=== PATIENT | female | born 1940 | race Caucasian/White ===

== ENCOUNTER 2017-12-11 11:03 | Emergency (ER) | payer MEDICARE, BC, SELFPAY ==
[2017-12-11] VITALS (35 sets, daily range): BP systolic 112–226; BP diastolic 50–138; PULSE 53–77; RESP 14–20; TEMP 36.4–38.6; O2SAT 96–99
--- NOTE | 2017-12-11 11:35 | ED.NEUROSD ---
HPI - Neuro Symptoms/Deficit General Chief Complaint: Neuro Symptoms/Deficit Stated Complaint: grandson thinks shes had a stroke Time Seen by Provider: 12/11/17 11:20 Source: patient and family Mode of arrival: wheelchair Limitations: no limitations History of Present Illness HPI Narrative: This is a 77-year-old female comes in with complaint of stroke-like symptoms. Patient states last night around 6 or 7 o'clock she noticed that her left side was not working very well. Um do Um her noticed symptoms probably around midnight. Her family came over this morning and definitely appreciated slurred speech as well as weakness on the left side and some right-sided facial droop. They brought her here to the emergency department. Patient has not had any prior strokes. She states her symptoms are really improved. She does feel she is having difficulty with her speech. She states she has a mild headache. She feels like she has double vision. It only occurs if both eyes are open, if 1 eye is closed she does not have it. She has had some nausea and vomiting this morning. She is not having any chest pain. No shortness of breath. Patient does not take any blood thinners currently. She takes aspirin only occasionally for headaches. She denies any cardiac or pulmonary history. She denies any GI history. She does have a stent in her bladder or ureter. She has also had with bilateral orthopedic surgery. She has had problems with mobility and her lower extremities but states the weakness on her left arm and leg is new. She describes it as feeling like a block that she can't really control it. Related Data Home Medications Medication Instructions Recorded Confirmed latanoprost [Xalatan] 1 [facility] HS #0 03/22/11 12/11/17 Allergies Allergy/AdvReac Type Severity Reaction Status Date / Time RAMIREZ Inhibitors Allergy Unknown Unverified 07/02/17 12:55 [RAMIREZ INHIBITORS] oxycodone [OXYCODONE] Allergy Unknown Unverified 07/02/17 12:55 MINOXODIL Allergy Unknown Uncoded 07/02/17 12:55 Review of Systems Review of Systems All systems reviewed & are unremarkable except as noted in HPI and below Constitutional Reports headache(s) (Mild) and Reports weakness Eyes Reports diplopia ENT Ears, Nose, Mouth, and Throat: Reports headache(s) (Mild) Cardiovascular Denies dyspnea and Denies dyspnea on exertion Respiratory Denies cough, Denies dyspnea, Denies dyspnea on exertion and Denies wheezing Gastrointestinal Gastrointestinal: Denies abdominal pain, Denies change in bowel habits, Denies diarrhea, Reports nausea and Reports vomiting Genitourinary Reports hematuria (Has stents.) Neurologic Reports as per HPI, Reports abnormal movements, Reports abnormal speech, Denies confusion, Reports headache(s) (Mild), Reports focal weakness, Reports sensory deficit (Chief left arm feels funny.), Reports paresthesias and Reports weakness Psychiatric Denies confusion Allergic/Immunologic Denies wheezing Exam Initial Vital Signs Initial Vital Signs: Vital Signs Temperature 97.5 F L 12/11/17 11:05 Pulse Rate 60 12/11/17 11:05 Respiratory Rate 18 12/11/17 11:05 Blood Pressure 209/111 H 12/11/17 11:05 Pulse Oximetry 96 12/11/17 11:05 Const General: cooperative and well developed Nutritional Appearance: obese Orientation: alert, awake, oriented x3 and not confused HENPA Head: normal to inspection, normocephalic and atraumatic Ears: external ears normal and TM's normal bilaterally Nose: external nose normal and No nasal discharge Face and sinus: sinuses nontender, no sinus tenderness and No dry mucous membranes Mouth: oral mucosae normal and moist mucous membranes Teeth and gingiva: dentition normal Throat: tonsils normal and uvula midline Resp Effort & Inspection: normal respiratory effort, able to speak in complete sentences, no respiratory distress and no use of accessory muscles Auscultation: clear to auscultation bilaterally, no rales, no rhonchi and no wheezes Cardio Rate: regular rate Rhythm: regular rhythm Heart Sounds: no click, no gallops, no murmurs and no rubs Pulses: normal peripheral pulses GI Inspection: non-distended Palpation: soft, no hepatosplenomegaly, No guarding, No pulsatile mass and No tender Auscultation: normal bowel sounds Skin General: no rashes or lesions noted Neuro General: alert, oriented x3, gait normal and no focal motor deficits Speech: speech normal Other: Pupils are equal round reactive to light, extraocular movements are intact, nares are clear, patient has right-sided facial droop. Patient has a left-sided weakness, she is able to lift her arm against gravity but is not able to maintain it. Patient is not able to lift her left lower extremity off the leg but she does attempt. She has 5/5 muscle strength in her right and upper and lower extremity. NEURO:CN 2-12 intact, sensation normal, finger nose finger test normal on the right. Patient is unable to perform heel-gr with her lower extremity on the left and with great difficulty perform with her [id number] on the left. Gait was not tested. Scores NIH Stroke Scale Level of Conciousness: Alert, keenly responsive Ask month/age: Answers both questions correctly. Open/close eyes, close hand: Performs both tasks correctly Best gaze horizontal: Normal Visual nunez: Partial hemianopia Facial palsy: Partial paralysis, total or near total paralysis of lower face Left arm drift: Drifts down, not to bed Right arm drift: No drift for full 10 sec Left leg drift: Some effort against gravity, cannot maintain, drifts down to bed Right leg drift: No drift for full 10 sec Limb ataxia: Present in two limbs Sensory on face/arms/legs: Normal, no sensory loss Best language: No aphasia, normal Dysarthria: Normal Extinction or inattention: No abnormality Total NIH Stroke scale score: 8 Course Orders Ordered: ED Orders 12/11/17 11:20 Urine Drug Screen, Rapid Stat 12/11/17 11:34 EKG-12 Lead Stat 12/11/17 11:48 Basic Metabolic Panel Stat Complete Blood Count AUTO DIFF Stat Partial Thromboplastin Time Stat Prothrombin Time INR Stat Troponin I Stat 12/11/17 12:00 CT head/brain wo con Stat 12/11/17 17:31 CT head/brain wo con Stat Discontinued Medications Acetaminophen (Tylenol) 975 mg PO NOW ONE Stop: 12/11/17 14:57 Last Admin: 12/11/17 15:33 Dose: 975 mg Hydralazine HCl (Apresoline) 5 mg IV NOW ONE Stop: 12/11/17 16:17 Last Admin: 12/11/17 16:25 Dose: 5 mg Sodium Chloride (Normal Saline 0.9%) 1,000 mls @ 150 mls/hr IV CONT DEVYN Last Infusion: 12/11/17 19:14 Dose: 0 mls/hr Admin: 12/11/17 12:07 Dose: 150 mls/hr Labetalol HCl (Normodyne) 10 mg IV NOW ONE Stop: 12/11/17 12:09 Last Admin: 12/11/17 12:32 Dose: 10 mg Labetalol HCl (Normodyne) 10 mg IV NOW ONE Stop: 12/11/17 14:09 Last Admin: 12/11/17 14:09 Dose: 10 mg Ondansetron HCl (Zofran) 4 mg IV NOW ONE Stop: 12/11/17 12:09 Last Admin: 12/11/17 12:22 Dose: 4 mg Reevaluation(s) Reevaluation #1: Patient continues to maintain mental status. Reevaluation #2: Patient continues to be able to maintain her airway and is not obtunded or had decrease in mental status. She has been shivering and there was concern for vtach but appears to be artifact from shivering after repeat EKG. Tylenol, ice packs for fever was started. Reevaluation #3: Time: 17:20 Consultations Consultation #1: Spoke with neurosurgery and they ask for NICU and admission to cryogenic transport driver. Also spoke with neurology prior to this with Dr. Jett and they asked us to speak with neurosurgery based on hemorrhagic stroke. Consultation #2: Dr. Krishna cryogenic transport driver at [facility] accepts patient for transfer. Consultation #3: Spoke with Dr. Krishna the cryogenic transport driver [place]. Updated him that patient has a fever, she has been shivering. We discussed blood pressure control and parameters. He continues recommend maintaining systolic less than 160. Labetalol if her heart rate is too slow hydralazine is fine. Discussed that we did Tylenol and ice packs for temperature control. Urine found any other obvious source of infection. He had and I did discuss possibly doing a repeat head CT from 6 hr from her initial as patient's transfer is delayed she will be leaving for another 2 hr. And her arrival be about 9:00 p.m. this evening. We did discuss that if there is sudden decompensation or rapid changes on her head CT would likely want air lift rather than a LS. Time: 17:20 Vital Signs - 8 hr 12/11/17 12:06 12/11/17 12:27 12/11/17 12:33 Temperature Pulse Rate 65 62 59 L Respiratory Rate 18 14 Blood Pressure Blood Pressure [Right Arm] 226/122 H 226/121 H 207/86 H Pulse Oximetry 96 96 12/11/17 12:37 12/11/17 12:45 12/11/17 12:50 Temperature Pulse Rate 53 L 58 L 55 L Respiratory Rate Blood Pressure Blood Pressure [Right Arm] 172/75 H 208/72 H 160/71 H Pulse Oximetry 12/11/17 12:55 12/11/17 13:04 12/11/17 13:21 Temperature Pulse Rate 55 L 56 L 68 Respiratory Rate 20 Blood Pressure Blood Pressure [Right Arm] 156/71 H 165/74 H 202/101 H Pulse Oximetry 98 12/11/17 13:30 12/11/17 13:45 12/11/17 14:03 Temperature Pulse Rate 66 69 71 Respiratory Rate 20 20 Blood Pressure Blood Pressure [Right Arm] 189/98 H 189/98 H 169/96 H Pulse Oximetry 99 98 12/11/17 14:09 12/11/17 14:14 12/11/17 14:17 Temperature Pulse Rate 67 66 68 Respiratory Rate Blood Pressure Blood Pressure [Right Arm] 163/89 H 174/114 H 136/82 Pulse Oximetry 12/11/17 14:39 12/11/17 14:52 12/11/17 15:05 Temperature Pulse Rate 61 66 65 Respiratory Rate 20 20 Blood Pressure Blood Pressure [Right Arm] 184/138 H 158/129 H 164/68 H Pulse Oximetry 98 98 12/11/17 15:15 12/11/17 15:37 12/11/17 16:02 Temperature Pulse Rate 67 74 70 Respiratory Rate Blood Pressure Blood Pressure [Right Arm] 163/71 H 151/89 H 174/70 H Pulse Oximetry 12/11/17 16:10 12/11/17 16:15 12/11/17 16:25 Temperature 101.5 F H Pulse Rate 72 72 70 Respiratory Rate 20 20 Blood Pressure Blood Pressure [Right Arm] 179/71 H 176/70 H 161/66 H Pulse Oximetry 97 99 12/11/17 16:30 12/11/17 16:35 12/11/17 16:50 Temperature 101.5 F H Pulse Rate 76 77 Respiratory Rate 20 20 Blood Pressure Blood Pressure [Right Arm] 160/66 H 175/94 H Pulse Oximetry 99 98 12/11/17 16:52 12/11/17 17:16 12/11/17 17:30 Temperature Pulse Rate 76 71 69 Respiratory Rate 18 20 Blood Pressure 178/79 H Blood Pressure [Right Arm] 156/62 H 146/61 H Pulse Oximetry 97 98 12/11/17 17:51 12/11/17 18:20 12/11/17 18:45 Temperature 99.7 F H 99.7 F H Pulse Rate 67 72 68 Respiratory Rate 20 20 20 Blood Pressure Blood Pressure [Right Arm] 136/62 143/57 H 120/50 L Pulse Oximetry 98 96 97 12/11/17 19:00 Temperature Pulse Rate 67 Respiratory Rate 20 Blood Pressure Blood Pressure [Right Arm] 112/57 L Pulse Oximetry 96 This is a 77-year-old female who came in with stroke-like symptoms. Head CT shows hemorrhagic stroke. [place] was contacted spoke with Neurology, Neurosurgery and cryogenic transport driver and plan for transfer to the neuro ICU. Patient blood pressure was quite elevated on arrival. She received labetalol she has received 2 doses and then a dose of hydralazine as her heart rate was in the 50s and 60s. Patient did developed a fever, Tylenol and ice packs were started. We consultation with the cryogenic transport driver and repeat head CT was planned. The patient continues to have elevated pressures we can do not cardiac pain if we have available. Patient is rapidly decompensated your have major changes on her CT plan to air lift after re-consultation the cryogenic transport driver patient's most recent blood pressure is 140/83. Patient's repeat head CT does not show any increase in size of her intraparenchymal hemorrhage. no major changes to the surrounding structures although edema still present. MDM - Neuro Symptoms/Deficit Lab Data Attestation: I reviewed the patient's lab results. Result diagrams: 12/11/17 11:48 12/11/17 11:48 Lab Results 12/11/17 12/11/17 12/11/17 Range/Units 11:20 11:48 11:48 WBC 7.8 (4.5-11.0) X10^3/uL RBC 3.77 L (4.0-5.2) X10^6/uL Hgb 11.3 L (12.0-16.0) g/dL Hct 33.8 L (36-46) % MCV 89.7 (80-100) fL MCH 30.1 (26-34) PG MCHC 33.6 (30-36) % RDW 13.2 (11.6-14.8) % Plt Count 174 (150-400) X10^3/uL Neut % (Auto) 76.9 H (50-75) % Lymph % (Auto) 17.4 L (25-40) % Jewell % (Auto) 4.0 (3-14) % Eos % (Auto) 1.0 L (2-4) % Baso % (Auto) 0.7 (0-2) % Neut # (Auto) 6000 H (1863-0809) /uL PT 11.3 (10.1-12.7) SECONDS INR 1.1 (0.9-1.3) APTT 27 (26.4-36.2) SECONDS Sodium (137-145) mmol/L Potassium (3.4-5.1) mmol/L Chloride (98-107) mmol/L Carbon Dioxide (22-32) mmol/L BUN (7-17) mg/dL Creatinine (0.52-1.04) mg/dL Estimated GFR (>60) mL/min BUN/Creatinine Ratio (6-22) Glucose (80-110) mg/dL Calcium (8.4-10.2) mg/dL Troponin I (0.01-0.034) ng/mL Urine Opiates Screen Negative (Negative) Ur Oxycodone Screen Negative (Negative) Urine Methadone Screen Negative (Negative) Ur Barbiturates Screen Negative (Negative) U Tricyclic Antidepress Negative (Negative) Ur Phencyclidine Scrn Negative (Negative) Ur Amphetamines Screen Negative (Negative) U Methamphetamines Scrn Negative (Negative) Ur MDMA Scrn (Ecstasy) Negative (Negative) U Benzodiazepines Scrn Negative (Negative) Urine Cocaine Screen Negative (Negative) U Marijuana (THC) Screen Negative (Negative) 12/11/17 Range/Units 11:48 WBC (4.5-11.0) X10^3/uL RBC (4.0-5.2) X10^6/uL Hgb (12.0-16.0) g/dL Hct (36-46) % MCV (80-100) fL MCH (26-34) PG MCHC (30-36) % RDW (11.6-14.8) % Plt Count (150-400) X10^3/uL Neut % (Auto) (50-75) % Lymph % (Auto) (25-40) % Jewell % (Auto) (3-14) % Eos % (Auto) (2-4) % Baso % (Auto) (0-2) % Neut # (Auto) (7798-2621) /uL PT (10.1-12.7) SECONDS INR (0.9-1.3) APTT (26.4-36.2) SECONDS Sodium 143 (137-145) mmol/L Potassium 4.1 (3.4-5.1) mmol/L Chloride 107 (98-107) mmol/L Carbon Dioxide 22 (22-32) mmol/L BUN 28 H (7-17) mg/dL Creatinine 2.50 H (0.52-1.04) mg/dL Estimated GFR 18.7 L (>60) mL/min BUN/Creatinine Ratio 11.2 (6-22) Glucose 135 H (80-110) mg/dL Calcium 9.0 (8.4-10.2) mg/dL Troponin I 0.035 H (0.01-0.034) ng/mL Urine Opiates Screen (Negative) Ur Oxycodone Screen (Negative) Urine Methadone Screen (Negative) Ur Barbiturates Screen (Negative) U Tricyclic Antidepress (Negative) Ur Phencyclidine Scrn (Negative) Ur Amphetamines Screen (Negative) U Methamphetamines Scrn (Negative) Ur MDMA Scrn (Ecstasy) (Negative) U Benzodiazepines Scrn (Negative) Urine Cocaine Screen (Negative) U Marijuana (THC) Screen (Negative) Point of Care Testing Glucose POC [address] scan - head: Radiologist's impression: CT Scan Report Signed Patient: Minnie Wetzel MR#: [id number] : 1940 Acct:[id number] Age/Sex: 77 / F Date of Service: 12/11/17 Loc: ED Accession Number: [id number] Procedure: CT head/brain wo con Ordering Provider: Cinthia Lynne D.O. PROCEDURE: CT HEAD/BRAIN WO CON INDICATIONS: left sided weakness, right facial droop, slurred speech TECHNIQUE: Noncontrast 4.5 mm thick angled axial sections acquired from the foramen magnum to the vertex, with coronal and sagittal reformats. For radiation dose reduction, the following was used: automated exposure control, adjustment of mA and/or kV according to patient size. COMPARISON: None. FINDINGS: Image quality: Excellent. CSF spaces: There is slight effacement of the right basilar cisterns secondary to mass effect from the right thalamus. No extra-axial fluid collections. There is mild cerebral volume loss with prominence of the ventricles and sulci. Brain: There is an intraparenchymal hematoma within the right thalamus measuring up to approximately 1.9 x 1.4 cm in transverse dimension adjacent vasogenic edema. There is mild associated mass effect on the adjacent basilar cisterns and midbrain as well as the third ventricle. There are subcortical, periventricular and deep white matter hypodensities consistent with mild chronic small vessel ischemic changes. The monzon-white matter interface appears preserved. There is intracranial internal carotid artery atherosclerosis. Skull and face: Calvarium and visualized facial bones appear intact, without suspicious lesions. Sinuses: Visualized sinuses and mastoids are clear. IMPRESSION: 1. Intraparenchymal hematoma within the right thalamus with associated mild vasogenic edema. 2. There is associated mass effect with slight effacement of the right basilar cisterns and third ventricle as well as mass effect on the mid brain. 3. Mild chronic white matter small vessel ischemic changes. Findings discussed with Dr. Lynne on 12/11/17 at 11 AM. Dictated by: Quinten Jensen M.D. on 12/11/2017 at 10:57 Approved by: Quinten Jensen M.D. on 12/11/2017 at 11:[address]: Radiologist's impression: CT Scan Report Signed Patient: Minnie Wetzel MR#: [id number] : 1940 Acct:[id number] Age/Sex: 77 / F Date of Service: 12/11/17 Loc: ED Accession Number: [id number] Procedure: CT head/brain wo con Ordering Provider: Cinthia Lynne D.O. PROCEDURE: CT HEAD/BRAIN WO CON INDICATIONS: repeat head ct for bleed for comparison, requested by neuro TECHNIQUE: Noncontrast 4.5 mm thick angled axial sections acquired from the foramen magnum to the vertex, with coronal and sagittal reformats. For radiation dose reduction, the following was used: automated exposure control, adjustment of mA and/or kV according to patient size. COMPARISON: [facility], CT, CT HEAD/BRAIN WO CON, 12/11/2017, 11:44. FINDINGS: Image quality: Excellent. CSF spaces: Basal cisterns are patent, yet mildly narrowed. No extra-axial fluid collections. The ventricles are symmetric in size and shape. Brain: There is again seen acute hemorrhage within the right thalamus, with expansion of the right thalamus and associated surrounding edema. The hemorrhage has not expanded since the prior study performed earlier in the day at 1144 hrs. No new areas of hemorrhage are detected. There is cerebral volume loss for age, with resultant ventricular and sulcal prominence. There are periventricular and deep white matter chronic small vessel ischemic changes. There is intracranial internal carotid artery atherosclerosis. Skull and face: Calvarium and visualized facial bones appear intact, without suspicious lesions. Sinuses: Visualized sinuses and mastoids are clear. IMPRESSION: Stable right thalamus hemorrhage with surrounding edema. Dictated by: Art Lee M.D. on 12/11/2017 at 18:20 Approved by: Art Lee M.D. on 12/11/2017 at 18:22 ECG Data Attestation: I personally reviewed and interpreted this ECG as follows: Interpretation: EKG 1. Shows a sinus rhythm with sinus arrhythmia with a rate of 64, P are 186, QRS of 165 and QTC of 494. Patient appears have a left bundle branch block as well as a left anterior fascicular block. Nonspecific ST change. EKG number also shows atrial fibrillation with a rate of 74, right bundle branch block and left anterior fascicular block. Patient does not appear to have any new ST changes from prior. She has a rate of 74, QRS 162 and QTC of 483. MDM Narrative Medical decision making narrative: Patient is not a tPA candidate secondary hemorrhagic stroke on CT findings as well as being outside an appropriate time frame. Patient's pressure was quite elevated she was given labetalol here which did improve her pressure. [facility] was contacted and plan for transfer it. There was significant delay and transportation and they were re-contacted the patient had repeat head CT as well as multiple doses of medication for pressure control. She also developed a fever here in the emergency department although no some neck that source is found other than potentially from her seizure. No clear infectious signs were found. Patient's repeat CT did not show any acute changes from the prior. Patient was ultimately transported and appeared to be stable when she left the emergency department Critical Care Time Critical Care Time: Yes (90) Total Critical Care Time: 90 Attestation: The high probability of a clinically significant, sudden or life threatening deterioration of the [respiratory and neurologic] system(s) required my full and direct attention, intervention and personal management. The aggregate critical care time was [90] minutes. This time is in addition to time spent performing reported procedures but includes the following: [] Data Review and interpretation [] Patient assessment and monitoring of vital signs [] Documentation [] Medication orders and management Discharge Plan Departure Patient Disposition: [facility] Clinical Impression: Acute CVA (cerebrovascular accident) Discharge Date/Time: 12/11/17 19:19 Interventions: ED Discharge Assessment Last Done: 12/11/17 18:26 Prescriptions: No Action latanoprost [Xalatan] 0.005 % drops 1 drp OPHTH HS Qty: 0 RF: 0
--- NOTE | 2017-12-11 11:40 | ED_ITS ---
HPI - Neuro Symptoms/Deficit General Chief Complaint: Neuro Symptoms/Deficit Stated Complaint: grandson thinks shes had a stroke Time Seen by Provider: 12/11/17 11:20 Source: patient and family Mode of arrival: wheelchair Limitations: no limitations History of Present Illness HPI Narrative: This is a 77-year-old female comes in with complaint of stroke- like symptoms. Patient states last night around 6 or 7 o'clock she noticed that her left side was not working very well. Um do Um her noticed symptoms probably around midnight. Her family came over this morning and definitely appreciated slurred speech as well as weakness on the left side and some right-sided facial droop. They brought her here to the emergency department. Patient has not had any prior strokes. She states her symptoms are really improved. She does feel she is having difficulty with her speech. She states she has a mild headache. She feels like she has double vision. It only occurs if both eyes are open, if 1 eye is closed she does not have it. She has had some nausea and vomiting this morning. She is not having any chest pain. No shortness of breath. Patient does not take any blood thinners currently. She takes aspirin only occasionally for headaches. She denies any cardiac or pulmonary history. She denies any GI history. She does have a stent in her bladder or ureter. She has also had with bilateral orthopedic surgery. She has had problems with mobility and her lower extremities but states the weakness on her left arm and leg is new. She describes it as feeling like a block that she can't really control it. Related Data Home Medications Medication Instructions Recorded Confirmed latanoprost [Xalatan] 1 [facility] HS #0 03/22/11 12/11/17 Allergies Allergy/AdvReac Type Severity Reaction Status Date / Time RAMIREZ Inhibitors Allergy Unknown Unverified 07/02/17 12:55 [RAMIREZ INHIBITORS] oxycodone [OXYCODONE] Allergy Unknown Unverified 07/02/17 12:55 MINOXODIL Allergy Unknown Uncoded 07/02/17 12:55 Review of Systems Review of Systems All systems reviewed & are unremarkable except as noted in HPI and below Constitutional Reports headache(s) (Mild) and Reports weakness Eyes Reports diplopia ENT Ears, Nose, Mouth, and Throat: Reports headache(s) (Mild) Cardiovascular Denies dyspnea and Denies dyspnea on exertion Respiratory Denies cough, Denies dyspnea, Denies dyspnea on exertion and Denies wheezing Gastrointestinal Gastrointestinal: Denies abdominal pain, Denies change in bowel habits, Denies diarrhea, Reports nausea and Reports vomiting Genitourinary Reports hematuria (Has stents.) Neurologic Reports as per HPI, Reports abnormal movements, Reports abnormal speech, Denies confusion, Reports headache(s) (Mild), Reports focal weakness, Reports sensory deficit (Chief left arm feels funny.), Reports paresthesias and Reports weakness Psychiatric Denies confusion Allergic/Immunologic Denies wheezing Exam Initial Vital Signs Initial Vital Signs: Vital Signs Temperature 97.5 F L 12/11/17 11:05 Pulse Rate 60 12/11/17 11:05 Respiratory Rate 18 12/11/17 11:05 Blood Pressure 209/111 H 12/11/17 11:05 Pulse Oximetry 96 12/11/17 11:05 Const General: cooperative and well developed Nutritional Appearance: obese Orientation: alert, awake, oriented x3 and not confused HENMA Head: normal to inspection, normocephalic and atraumatic Ears: external ears normal and TM's normal bilaterally Nose: external nose normal and No nasal discharge Face and sinus: sinuses nontender, no sinus tenderness and No dry mucous membranes Mouth: oral mucosae normal and moist mucous membranes Teeth and gingiva: dentition normal Throat: tonsils normal and uvula midline Resp Effort & Inspection: normal respiratory effort, able to speak in complete sentences, no respiratory distress and no use of accessory muscles Auscultation: clear to auscultation bilaterally, no rales, no rhonchi and no wheezes Cardio Rate: regular rate Rhythm: regular rhythm Heart Sounds: no click, no gallops, no murmurs and no rubs Pulses: normal peripheral pulses GI Inspection: non-distended Palpation: soft, no hepatosplenomegaly, No guarding, No pulsatile mass and No tender Auscultation: normal bowel sounds Skin General: no rashes or lesions noted Neuro General: alert, oriented x3, gait normal and no focal motor deficits Speech: speech normal Other: Pupils are equal round reactive to light, extraocular movements are intact, nares are clear, patient has right-sided facial droop. Patient has a left-sided weakness, she is able to lift her arm against gravity but is not able to maintain it. Patient is not able to lift her left lower extremity off the leg but she does attempt. She has 5/5 muscle strength in her right and upper and lower extremity. NEURO:CN 2-12 intact, sensation normal, finger nose finger test normal on the right. Patient is unable to perform heel-gr with her lower extremity on the left and with great difficulty perform with her [id number] on the left. Gait was not tested. Scores NIH Stroke Scale Level of Conciousness: Alert, keenly responsive Ask month/age: Answers both questions correctly. Open/close eyes, close hand: Performs both tasks correctly Best gaze horizontal: Normal Visual nunez: Partial hemianopia Facial palsy: Partial paralysis, total or near total paralysis of lower face Left arm drift: Drifts down, not to bed Right arm drift: No drift for full 10 sec Left leg drift: Some effort against gravity, cannot maintain, drifts down to bed Right leg drift: No drift for full 10 sec Limb ataxia: Present in two limbs Sensory on face/arms/legs: Normal, no sensory loss Best language: No aphasia, normal Dysarthria: Normal Extinction or inattention: No abnormality Total NIH Stroke scale score: 8 Course Orders Ordered: ED Orders 12/11/17 11:20 Urine Drug Screen, Rapid Stat 12/11/17 11:34 EKG-12 Lead Stat 12/11/17 11:48 Basic Metabolic Panel Stat Complete Blood Count AUTO DIFF Stat Partial Thromboplastin Time Stat Prothrombin Time INR Stat Troponin I Stat 12/11/17 12:00 CT head/brain wo con Stat 12/11/17 17:31 CT head/brain wo con Stat Discontinued Medications Acetaminophen (Tylenol) 975 mg PO NOW ONE Stop: 12/11/17 14:57 Last Admin: 12/11/17 15:33 Dose: 975 mg Hydralazine HCl (Apresoline) 5 mg IV NOW ONE Stop: 12/11/17 16:17 Last Admin: 12/11/17 16:25 Dose: 5 mg Sodium Chloride (Normal Saline 0.9%) 1,000 mls @ 150 mls/hr IV CONT DEVYN Last Infusion: 12/11/17 19:14 Dose: 0 mls/hr Admin: 12/11/17 12:07 Dose: 150 mls/hr Labetalol HCl (Normodyne) 10 mg IV NOW ONE Stop: 12/11/17 12:09 Last Admin: 12/11/17 12:32 Dose: 10 mg Labetalol HCl (Normodyne) 10 mg IV NOW ONE Stop: 12/11/17 14:09 Last Admin: 12/11/17 14:09 Dose: 10 mg Ondansetron HCl (Zofran) 4 mg IV NOW ONE Stop: 12/11/17 12:09 Last Admin: 12/11/17 12:22 Dose: 4 mg Reevaluation(s) Reevaluation #1: Patient continues to maintain mental status. Reevaluation #2: Patient continues to be able to maintain her airway and is not obtunded or had decrease in mental status. She has been shivering and there was concern for vtach but appears to be artifact from shivering after repeat EKG. Tylenol, ice packs for fever was started. Reevaluation #3: Time: 17:20 Consultations Consultation #1: Spoke with neurosurgery and they ask for NICU and admission to [facility]. Also spoke with neurology prior to this with Dr. Jett and they asked us to speak with neurosurgery based on hemorrhagic stroke. Consultation #2: Dr. Krishna comedian at [facility] accepts patient for transfer. Consultation #3: Spoke with Dr. Krishna the comedian [place]. Updated him that patient has a fever, she has been shivering. We discussed blood pressure control and parameters. He continues recommend maintaining systolic less than 160. Labetalol if her heart rate is too slow hydralazine is fine. Discussed that we did Tylenol and ice packs for temperature control. Urine found any other obvious source of infection. He had and I did discuss possibly doing a repeat head CT from 6 hr from her initial as patient's transfer is delayed she will be leaving for another 2 hr. And her arrival be about 9:00 p.m. this evening. We did discuss that if there is sudden decompensation or rapid changes on her head CT would likely want air lift rather than a LS. Time: 17:20 Vital Signs - 8 hr 12/11/17 12:06 12/11/17 12:27 12/11/17 12:33 Temperature Pulse Rate 65 62 59 L Respiratory Rate 18 14 Blood Pressure Blood Pressure [Right Arm] 226/122 H 226/121 H 207/86 H Pulse Oximetry 96 96 12/11/17 12:37 12/11/17 12:45 12/11/17 12:50 Temperature Pulse Rate 53 L 58 L 55 L Respiratory Rate Blood Pressure Blood Pressure [Right Arm] 172/75 H 208/72 H 160/71 H Pulse Oximetry 12/11/17 12:55 12/11/17 13:04 12/11/17 13:21 Temperature Pulse Rate 55 L 56 L 68 Respiratory Rate 20 Blood Pressure Blood Pressure [Right Arm] 156/71 H 165/74 H 202/101 H Pulse Oximetry 98 12/11/17 13:30 12/11/17 13:45 12/11/17 14:03 Temperature Pulse Rate 66 69 71 Respiratory Rate 20 20 Blood Pressure Blood Pressure [Right Arm] 189/98 H 189/98 H 169/96 H Pulse Oximetry 99 98 12/11/17 14:09 12/11/17 14:14 12/11/17 14:17 Temperature Pulse Rate 67 66 68 Respiratory Rate Blood Pressure Blood Pressure [Right Arm] 163/89 H 174/114 H 136/82 Pulse Oximetry 12/11/17 14:39 12/11/17 14:52 12/11/17 15:05 Temperature Pulse Rate 61 66 65 Respiratory Rate 20 20 Blood Pressure Blood Pressure [Right Arm] 184/138 H 158/129 H 164/68 H Pulse Oximetry 98 98 12/11/17 15:15 12/11/17 15:37 12/11/17 16:02 Temperature Pulse Rate 67 74 70 Respiratory Rate Blood Pressure Blood Pressure [Right Arm] 163/71 H 151/89 H 174/70 H Pulse Oximetry 12/11/17 16:10 12/11/17 16:15 12/11/17 16:25 Temperature 101.5 F H Pulse Rate 72 72 70 Respiratory Rate 20 20 Blood Pressure Blood Pressure [Right Arm] 179/71 H 176/70 H 161/66 H Pulse Oximetry 97 99 12/11/17 16:30 12/11/17 16:35 12/11/17 16:50 Temperature 101.5 F H Pulse Rate 76 77 Respiratory Rate 20 20 Blood Pressure Blood Pressure [Right Arm] 160/66 H 175/94 H Pulse Oximetry 99 98 12/11/17 16:52 12/11/17 17:16 12/11/17 17:30 Temperature Pulse Rate 76 71 69 Respiratory Rate 18 20 Blood Pressure 178/79 H Blood Pressure [Right Arm] 156/62 H 146/61 H Pulse Oximetry 97 98 12/11/17 17:51 12/11/17 18:20 12/11/17 18:45 Temperature 99.7 F H 99.7 F H Pulse Rate 67 72 68 Respiratory Rate 20 20 20 Blood Pressure Blood Pressure [Right Arm] 136/62 143/57 H 120/50 L Pulse Oximetry 98 96 97 12/11/17 19:00 Temperature Pulse Rate 67 Respiratory Rate 20 Blood Pressure Blood Pressure [Right Arm] 112/57 L Pulse Oximetry 96 This is a 77-year-old female who came in with stroke-like symptoms. Head CT shows hemorrhagic stroke. [place] was contacted spoke with Neurology, Neurosurgery and comedian and plan for transfer to the neuro ICU. Patient blood pressure was quite elevated on arrival. She received labetalol she has received 2 doses and then a dose of hydralazine as her heart rate was in the 50s and 60s. Patient did developed a fever, Tylenol and ice packs were started. We consultation with the comedian and repeat head CT was planned. The patient continues to have elevated pressures we can do not cardiac pain if we have available. Patient is rapidly decompensated your have major changes on her CT plan to air lift after re-consultation the comedian patient's most recent blood pressure is 140/83. Patient's repeat head CT does not show any increase in size of her intraparenchymal hemorrhage. no major changes to the surrounding structures although edema still present. MDM - Neuro Symptoms/Deficit Lab Data Attestation: I reviewed the patient's lab results. Result diagrams: 12/11/17 11:48 12/11/17 11:48 Lab Results 12/11/17 12/11/17 12/11/17 Range/Units 11:20 11:48 11:48 WBC 7.8 (4.5-11.0) X10^3/uL RBC 3.77 L (4.0-5.2) X10^6/uL Hgb 11.3 L (12.0-16.0) g/dL Hct 33.8 L (36-46) % MCV 89.7 (80-100) fL MCH 30.1 (26-34) PG MCHC 33.6 (30-36) % RDW 13.2 (11.6-14.8) % Plt Count 174 (150-400) X10^3/uL Neut % (Auto) 76.9 H (50-75) % Lymph % (Auto) 17.4 L (25-40) % [place] % (Auto) 4.0 (3-14) % Eos % (Auto) 1.0 L (2-4) % Baso % (Auto) 0.7 (0-2) % Neut # (Auto) 6000 H (2036-5091) /uL PT 11.3 (10.1-12.7) SECONDS INR 1.1 (0.9-1.3) APTT 27 (26.4-36.2) SECONDS Sodium (137-145) mmol/L Potassium (3.4-5.1) mmol/L Chloride (98-107) mmol/L Carbon Dioxide (22-32) mmol/L BUN (7-17) mg/dL Creatinine (0.52-1.04) mg/dL Estimated GFR (>60) mL/min BUN/Creatinine Ratio (6-22) Glucose (80-110) mg/dL Calcium (8.4-10.2) mg/dL Troponin I (0.01-0.034) ng/mL Urine Opiates Screen Negative (Negative) Ur Oxycodone Screen Negative (Negative) Urine Methadone Screen Negative (Negative) Ur Barbiturates Screen Negative (Negative) U Tricyclic Antidepress Negative (Negative) Ur Phencyclidine Scrn Negative (Negative) Ur Amphetamines Screen Negative (Negative) U Methamphetamines Scrn Negative (Negative) Ur MDMA Scrn (Ecstasy) Negative (Negative) U Benzodiazepines Scrn Negative (Negative) Urine Cocaine Screen Negative (Negative) U Marijuana (THC) Screen Negative (Negative) 12/11/17 Range/Units 11:48 WBC (4.5-11.0) X10^3/uL RBC (4.0-5.2) X10^6/uL Hgb (12.0-16.0) g/dL Hct (36-46) % MCV (80-100) fL MCH (26-34) PG MCHC (30-36) % RDW (11.6-14.8) % Plt Count (150-400) X10^3/uL Neut % (Auto) (50-75) % Lymph % (Auto) (25-40) % [place] % (Auto) (3-14) % Eos % (Auto) (2-4) % Baso % (Auto) (0-2) % Neut # (Auto) (9955-0818) /uL PT (10.1-12.7) SECONDS INR (0.9-1.3) APTT (26.4-36.2) SECONDS Sodium 143 (137-145) mmol/L Potassium 4.1 (3.4-5.1) mmol/L Chloride 107 (98-107) mmol/L Carbon Dioxide 22 (22-32) mmol/L BUN 28 H (7-17) mg/dL Creatinine 2.50 H (0.52-1.04) mg/dL Estimated GFR 18.7 L (>60) mL/min BUN/Creatinine Ratio 11.2 (6-22) Glucose 135 H (80-110) mg/dL Calcium 9.0 (8.4-10.2) mg/dL Troponin I 0.035 H (0.01-0.034) ng/mL Urine Opiates Screen (Negative) Ur Oxycodone Screen (Negative) Urine Methadone Screen (Negative) Ur Barbiturates Screen (Negative) U Tricyclic Antidepress (Negative) Ur Phencyclidine Scrn (Negative) Ur Amphetamines Screen (Negative) U Methamphetamines Scrn (Negative) Ur MDMA Scrn (Ecstasy) (Negative) U Benzodiazepines Scrn (Negative) Urine Cocaine Screen (Negative) U Marijuana (THC) Screen (Negative) Point of Care Testing Glucose POC [address] scan - head: Radiologist's impression: CT Scan Report Signed Patient: Minnie Wetzel MR#: [id number] : 1940 Acct:[id number] Age/Sex: 77 / F Date of Service: 12/11/17 Loc: ED Accession Number: [id number] Procedure: CT head/brain wo con Ordering Provider: Cinthia Lynne D.O. PROCEDURE: CT HEAD/BRAIN WO CON INDICATIONS: left sided weakness, right facial droop, slurred speech TECHNIQUE: Noncontrast 4.5 mm thick angled axial sections acquired from the foramen magnum to the vertex, with coronal and sagittal reformats. For radiation dose reduction, the following was used: automated exposure control, adjustment of mA and/or kV according to patient size. COMPARISON: None. FINDINGS: Image quality: Excellent. CSF spaces: There is slight effacement of the right basilar cisterns secondary to mass effect from the right thalamus. No extra-axial fluid collections. There is mild cerebral volume loss with prominence of the ventricles and sulci. Brain: There is an intraparenchymal hematoma within the right thalamus measuring up to approximately 1.9 x 1.4 cm in transverse dimension adjacent vasogenic edema. There is mild associated mass effect on the adjacent basilar cisterns and midbrain as well as the third ventricle. There are subcortical, periventricular and deep white matter hypodensities consistent with mild chronic small vessel ischemic changes. The monzon-white matter interface appears preserved. There is intracranial internal carotid artery atherosclerosis. Skull and face: Calvarium and visualized facial bones appear intact, without suspicious lesions. Sinuses: Visualized sinuses and mastoids are clear. IMPRESSION: 1. Intraparenchymal hematoma within the right thalamus with associated mild vasogenic edema. 2. There is associated mass effect with slight effacement of the right basilar cisterns and third ventricle as well as mass effect on the mid brain. 3. Mild chronic white matter small vessel ischemic changes. Findings discussed with Dr. Lynne on 12/11/17 at 11 AM. Dictated by: Quinten Jensen M.D. on 12/11/2017 at 10:57 Approved by: Quinten Jensen M.D. on 12/11/2017 at 11:[address]: Radiologist's impression: CT Scan Report Signed Patient: Minnie Wetzel MR#: [id number] : 1940 Acct:[id number] Age/Sex: 77 / F Date of Service: 12/11/17 Loc: ED Accession Number: [id number] Procedure: CT head/brain wo con Ordering Provider: Cinthia Lynne D.O. PROCEDURE: CT HEAD/BRAIN WO CON INDICATIONS: repeat head ct for bleed for comparison, requested by neuro TECHNIQUE: Noncontrast 4.5 mm thick angled axial sections acquired from the foramen magnum to the vertex, with coronal and sagittal reformats. For radiation dose reduction, the following was used: automated exposure control, adjustment of mA and/or kV according to patient size. COMPARISON: [facility], CT, CT HEAD/BRAIN WO CON, 12/11/2017, 11:44. FINDINGS: Image quality: Excellent. CSF spaces: Basal cisterns are patent, yet mildly narrowed. No extra-axial fluid collections. The ventricles are symmetric in size and shape. Brain: There is again seen acute hemorrhage within the right thalamus, with expansion of the right thalamus and associated surrounding edema. The hemorrhage has not expanded since the prior study performed earlier in the day at 1144 hrs. No new areas of hemorrhage are detected. There is cerebral volume loss for age, with resultant ventricular and sulcal prominence. There are periventricular and deep white matter chronic small vessel ischemic changes. There is intracranial internal carotid artery atherosclerosis. Skull and face: Calvarium and visualized facial bones appear intact, without suspicious lesions. Sinuses: Visualized sinuses and mastoids are clear. IMPRESSION: Stable right thalamus hemorrhage with surrounding edema. Dictated by: Art Lee M.D. on 12/11/2017 at 18:20 Approved by: Art Lee M.D. on 12/11/2017 at 18:22 ECG Data Attestation: I personally reviewed and interpreted this ECG as follows: Interpretation: EKG 1. Shows a sinus rhythm with sinus arrhythmia with a rate of 64, P are 186, QRS of 165 and QTC of 494. Patient appears have a left bundle branch block as well as a left anterior fascicular block. Nonspecific ST change. EKG number also shows atrial fibrillation with a rate of 74, right bundle branch block and left anterior fascicular block. Patient does not appear to have any new ST changes from prior. She has a rate of 74, QRS 162 and QTC of 483. MDM Narrative Medical decision making narrative: Patient is not a tPA candidate secondary hemorrhagic stroke on CT findings as well as being outside an appropriate time frame. Patient's pressure was quite elevated she was given labetalol here which did improve her pressure. [facility] was contacted and plan for transfer it. There was significant delay and transportation and they were re- contacted the patient had repeat head CT as well as multiple doses of medication for pressure control. She also developed a fever here in the emergency department although no some neck that source is found other than potentially from her seizure. No clear infectious signs were found. Patient's repeat CT did not show any acute changes from the prior. Patient was ultimately transported and appeared to be stable when she left the emergency department Critical Care Time Critical Care Time: Yes (90) Total Critical Care Time: 90 Attestation: The high probability of a clinically significant, sudden or life threatening deterioration of the [respiratory and neurologic] system(s) required my full and direct attention, intervention and personal management. The aggregate critical care time was [90] minutes. This time is in addition to time spent performing reported procedures but includes the following: [] Data Review and interpretation [] Patient assessment and monitoring of vital signs [] Documentation [] Medication orders and management Discharge Plan Departure Patient Disposition: [facility] Clinical Impression: Acute CVA (cerebrovascular accident) Discharge Date/Time: 12/11/17 19:19 Interventions: ED Discharge Assessment Last Done: 12/11/17 18:26 Prescriptions: No Action latanoprost [Xalatan] 0.005 % drops 1 drp OPHTH HS Qty: 0 RF: 0
[2017-12-11 11:54] LABS: Urine Amphetamines Negative (Negative); Urine Barbiturates Negative (Negative); Urine Benzodiazepines Negative (Negative); Urine Cocaine Negative (Negative); Urine MDMA Negative (Negative); Urine Methadone Negative (Negative); Urine Methamphetamines Negative (Negative); Urine Morphine/Opi cutoff 2000 Negative (Negative); Urine Oxycodone Negative (Negative); Urine Phencyclidine Negative (Negative); Urine Tetrahydrocannabinol Negative (Negative); Urine Tricyclic Antidepressant Negative (Negative)
--- NOTE | 2017-12-11 12:00 | DI.CT.S_ITS ---
PROCEDURE: CT HEAD/BRAIN WO CON INDICATIONS: left sided weakness, right facial droop, slurred speech TECHNIQUE: Noncontrast 4.5 mm thick angled axial sections acquired from the foramen magnum to the vertex, with coronal and sagittal reformats. For radiation dose reduction, the following was used: automated exposure control, adjustment of mA and/or kV according to patient size. COMPARISON: None. FINDINGS: Image quality: Excellent. CSF spaces: There is slight effacement of the right basilar cisterns secondary to mass effect from the right thalamus. No extra-axial fluid collections. There is mild cerebral volume loss with prominence of the ventricles and sulci. Brain: There is an intraparenchymal hematoma within the right thalamus measuring up to approximately 1.9 x 1.4 cm in transverse dimension adjacent vasogenic edema. There is mild associated mass effect on the adjacent basilar cisterns and midbrain as well as the third ventricle. There are subcortical, periventricular and deep white matter hypodensities consistent with mild chronic small vessel ischemic changes. The monzon-white matter interface appears preserved. There is intracranial internal carotid artery atherosclerosis. Skull and face: Calvarium and visualized facial bones appear intact, without suspicious lesions. Sinuses: Visualized sinuses and mastoids are clear. IMPRESSION: 1. Intraparenchymal hematoma within the right thalamus with associated mild vasogenic edema. 2. There is associated mass effect with slight effacement of the right basilar cisterns and third ventricle as well as mass effect on the mid brain. 3. Mild chronic white matter small vessel ischemic changes. Findings discussed with Dr. Lynne on 12/11/17 at 11 AM. Dictated by: Quinten Jensen M.D. on 12/11/2017 at 10:57 Approved by: Quinten Jensen M.D. on 12/11/2017 at 11:03
[2017-12-11 12:02] LABS: Add Manual Diff / Slide Review NO; Basophils Percent Auto 0.7 % (0-2); Hematocrit 33.8 % (36-46); Hemoglobin 11.3 g/dL (12.0-16.0); Lymphocytes Percent Auto 17.4 % (25-40); Mean Corpuscular HGB Conc 33.6 % (30-36); Mean Corpuscular Hemoglobin 30.1 PG (26-34); Mean Corpuscular Volume 89.7 fL (80-100); Neutrophils Absolute Auto 6000 /uL (3000-5900); Neutrophils Percent Auto 76.9 % (50-75); Platelet Count 174 X10^3/uL (150-400); Red Blood Cell Count 3.77 X10^6/uL (4.0-5.2); Red Cell Distribution Width 13.2 % (11.6-14.8); White Blood Cell Count 7.8 X10^3/uL (4.5-11.0)
[2017-12-11] MEDS: SODIUM CHLORIDE 0.9% 1,000 ML 150 ML IV (12:07)
[2017-12-11 12:10] LABS: BUN Creatinine Ratio 11.2 (6-22); Blood Urea Nitrogen 28 mg/dL (7-17); Carbon Dioxide 22 mmol/L (22-32); Chloride 107 mmol/L (98-107); Estimated Glomerular Filt Rate 18.7 mL/min (>60); Glucose 135 mg/dL (80-110); HEMOLYSIS < 15 (0-50); Potassium 4.1 mmol/L (3.4-5.1); Sodium 143 mmol/L (137-145)
[2017-12-11 12:21] LABS: INR 1.1 (0.9-1.3); Prothrombin Time 11.3 SECONDS (10.1-12.7)
[2017-12-11 12:22] LABS: Troponin I 0.035 ng/mL (0.01-0.034)
[2017-12-11] MEDS: ONDANSETRON 4 MG/2 ML INJ IV (12:22)
[2017-12-11 12:24] LABS: PTT Partial Thromboplastin Tim 27 SECONDS (26.4-36.2)
[2017-12-11] MEDS: LABETALOL 100 MG/20ML MDV 10 MG IV ×2 (12:32→14:09)
--- NOTE | 2017-12-11 14:00 | PC.NURSE ---
PT STATES SHE CAN FEEL PRESSURE ON LEFT UPPER/LOWER BODY , HOWEVER REPORTS NO PAIN RESPONSE WHEN PINCHED. PROVIDER AWARE. NO NEW ORDERS AT THIS TIME.
--- NOTE | 2017-12-11 14:00 | PC.NURSE ---
assessed pts skin. bilateral groin redness/irritation to skin. Pt states she gets yeast infections in her groin. provider aware pts skin is irritated. no new orders at this time. Cleaned perineal area with wet wipes, applied to clean brief to pt.
[2017-12-11] MEDS: ACETAMINOPHEN 325 MG TABLET 975 MG PO (15:33)
[2017-12-11] MEDS: HYDRALAZINE 20 MG/ML VIAL 5 MG IV (16:25)
--- NOTE | 2017-12-11 16:35 | PC.NURSE ---
NOTICED RUN OF V-TACH ON PTS TELEMETRY. PROVIDER NOTIFIED. EKG ORDERED. EKG SHOWED NO SIGNS OF V-TACH. PROVIDER AWARE NO NEW ORDERS AT THIS TIME.
--- NOTE | 2017-12-11 17:31 | DI.CT.S_ITS ---
PROCEDURE: CT HEAD/BRAIN WO CON INDICATIONS: repeat head ct for bleed for comparison, requested by neuro TECHNIQUE: Noncontrast 4.5 mm thick angled axial sections acquired from the foramen magnum to the vertex, with coronal and sagittal reformats. For radiation dose reduction, the following was used: automated exposure control, adjustment of mA and/or kV according to patient size. COMPARISON: Located Within [facility], CT, CT HEAD/BRAIN WO CON, 12/11/2017, 11:44. FINDINGS: Image quality: Excellent. CSF spaces: Basal cisterns are patent, yet mildly narrowed. No extra-axial fluid collections. The ventricles are symmetric in size and shape. Brain: There is again seen acute hemorrhage within the right thalamus, with expansion of the right thalamus and associated surrounding edema. The hemorrhage has not expanded since the prior study performed earlier in the day at 1144 hrs. No new areas of hemorrhage are detected. There is cerebral volume loss for age, with resultant ventricular and sulcal prominence. There are periventricular and deep white matter chronic small vessel ischemic changes. There is intracranial internal carotid artery atherosclerosis. Skull and face: Calvarium and visualized facial bones appear intact, without suspicious lesions. Sinuses: Visualized sinuses and mastoids are clear. IMPRESSION: Stable right thalamus hemorrhage with surrounding edema. Dictated by: Art Lee M.D. on 12/11/2017 at 18:20 Approved by: Art Lee M.D. on 12/11/2017 at 18:22
--- NOTE | 2017-12-11 18:00 | PC.NURSE ---
PT TAKEN TO GET CT OF HEAD. BY POWER TOOL REPAIRER
== END 2017-12-11 19:19 | disposition short-term general hospital (02) ==
PROVIDERS: Emergency Provider Emergency Medicine; Family Provider Internal Medicine; PCP Internal Medicine
DX: I61.9 Nontraumatic intracerebral hemorrhage, unspecified (principal)
CPT/HCPCS: 70450; 80048; 80305; 82962; 84484; 85025; 85610; 85730; 93005; 96361; 96374; 96375; 96376; 99285; 99291; J0360; J2405

== ENCOUNTER 2018-01-07 14:33 | Emergency (ER) | payer MEDICARE, BC, SELFPAY ==
[2018-01-07 14:37] VITALS: BP 165/100; PULSE 84; RESP 14; TEMP 37.5; O2SAT 98
--- NOTE | 2018-01-07 14:46 | DI.RAD.S_ITS ---
PROCEDURE: XR CHEST 1V INDICATIONS: suspected sepsis, hypertension TECHNIQUE: One view of the chest was acquired. COMPARISON: [facility], CHEST 2 VIEW, 08/17/2013, 8:57. [facility], CHEST 2 VIEW, 10/10/2015, 14:42. FINDINGS: Surgical changes and devices: None. Lungs and pleura: Within the left lower lung, there is atelectasis versus mild infiltrate. On this semiupright portable chest examination, no large pneumothorax or large pleural effusions are seen. Mediastinum: The cardiac contours are within normal limits. The aorta demonstrates calcification and tortuosity. Bones and chest wall: Age-appropriate bony degenerative changes are seen. No suspicious bony lesions. Overlying soft tissues appear unremarkable. Residual contrast is seen within the splenic flexure. IMPRESSION: Atelectasis versus mild infiltrate seen involving left lower lung. Please consider a 2 view chest series versus CT for further evaluation. Dictated by: Art Lee M.D. on 01/07/2018 at 14:49 Approved by: Art Lee M.D. on 01/07/2018 at 14:51
[2018-01-07 15:17] LABS: Add Manual Diff / Slide Review NO; Basophils Percent Auto 0.4 % (0-2); Eosinophils Percent Auto 0.8 % (2-4); Hematocrit 30.6 % (36-46); Hemoglobin 10.1 g/dL (12.0-16.0); Mean Corpuscular Hemoglobin 29.8 PG (26-34); Mean Corpuscular Volume 90.2 fL (80-100); Monocytes Percent Auto 4.9 % (3-14); Neutrophils Absolute Auto 8300 /uL (3000-5900); Neutrophils Percent Auto 87.9 % (50-75); Platelet Count 214 X10^3/uL (150-400); Red Blood Cell Count 3.39 X10^6/uL (4.0-5.2); Red Cell Distribution Width 14.4 % (11.6-14.8); White Blood Cell Count 9.4 X10^3/uL (4.5-11.0)
[2018-01-07 15:24] LABS: INR 1.2 (0.9-1.3)
[2018-01-07 15:27] LABS: PTT Partial Thromboplastin Tim 27 SECONDS (26.4-36.2)
[2018-01-07 15:30] LABS: Creatine Kinase 28 U/L (30-135); Lactate (Lactic Acid) 0.7 mmol/L (0.7-2.1)
[2018-01-07 15:31] LABS: Alanine Aminotransferase 29 IU/L (9-52); Albumin 4.1 g/dL (3.5-5.0); Albumin Globulin Ratio 1.2 (1.0-2.8); Alkaline Phosphatase 101 U/L (38-126); Aspartate Aminotransferase 27 IU/L (14-36); BUN Creatinine Ratio 15.7 (6-22); Bilirubin Total 0.5 mg/dL (0.2-1.3); Blood Urea Nitrogen 36 mg/dL (7-17); Calcium 8.5 mg/dL (8.4-10.2); Carbon Dioxide 19 mmol/L (22-32); Chloride 108 mmol/L (98-107); Estimated Glomerular Filt Rate 20.6 mL/min (>60); Globulin 3.4 g/dL (1.7-4.1); Glucose 154 mg/dL (80-110); HEMOLYSIS < 15 (0-50); Lipase 108 U/L (23-300); Potassium 4.6 mmol/L (3.4-5.1); Sodium 145 mmol/L (137-145); Total Protein 7.5 g/dL (6.3-8.2)
[2018-01-07 15:42] LABS: Troponin I 0.023 ng/mL (0.01-0.034)
[2018-01-07 15:59] LABS: Procalcitonin 0.09 ng/mL (<0.5)
[2018-01-07 16:30] VITALS: BP 159/88; PULSE 69; RESP 28; O2SAT 92
--- NOTE | 2018-01-07 16:46 | ED_ITS ---
HPI - Nausea/Vomiting/Diarrhea General Chief complaint: Nausea/Vomiting/Diarrhea Stated complaint: Abd pain Time Seen by Provider: 01/07/18 15:57 Source: patient and EMS Mode of arrival: EMS Limitations: no limitations History of Present Illness HPI Narrative: Patient states she began to feel nauseated and developed vomiting after she was moved after breakfast this morning. Patient states she believes the movement made her feel sick. Patient is 4 days postop after having bilateral renal stents placed. She states that the reason for the stents is that she had ?kidney cancer? when she was 27 and that the radiation cause scarring, which has caused increasing issue since. Patient denies fevers ; she states that otherwise she has not felt ill other than just general tiredness since her procedure. Patient denies any dysuria; she states she was discharged on antibiotics after her procedure. Patient denies chest pain or shortness of breath. She denies new pain. She states that now she is feeling better after receiving Zofran from medics EN route. Medics also states that patient has improved quite a bit for them, as well. Related Data Home Medications Medication Instructions Recorded Confirmed latanoprost [Xalatan] 1 drp [facility] HS #0 03/22/11 01/07/18 Lactobacillus rhamnosus GG 2 cap PO DAILY 01/07/18 01/07/18 [Culturelle] acetaminophen 325 mg PO Q8H PRN 01/07/18 01/07/18 amlodipine 10 mg PO DAILY 01/07/18 01/07/18 aspirin 81 mg PO DAILY 01/07/18 01/07/18 baclofen 5 mg PO BID 01/07/18 01/07/18 bisacodyl 1 - 2 tab PO PRN PRN 01/07/18 01/07/18 bisacodyl [Dulcolax (bisacodyl)] 1 supp ME PRN PRN 01/07/18 01/07/18 calcium carbonate-vitamin D3 1 tab PO DAILY 01/07/18 01/07/18 [Calcium 600 + D(3)] ciprofloxacin HCl [Cipro] 15 mg/kg PO DAILY 01/07/18 01/07/18 clonidine 1 patch TOPICAL MO 01/07/18 01/07/18 famotidine 20 mg PO QPM 01/07/18 01/07/18 ferrous sulfate 325 mg PO DAILY 01/07/18 01/07/18 hydralazine 25 mg PO Q8H 01/07/18 01/07/18 insulin lispro 1 dose SUBCUT ACHS 01/07/18 01/07/18 magnesium hydroxide [Milk of 30 ml PO PRN PRN 01/07/18 01/07/18 Magnesia] metoprolol tartrate 25 mg PO BID 01/07/18 01/07/18 pantoprazole 40 mg PO DAILY 01/07/18 01/07/18 pravastatin 40 mg PO QPM 01/07/18 01/07/18 sodium phosphates [Fleet Enema] 1 supp ME PRN PRN 01/07/18 01/07/18 vitamin B complex 1 tab PO DAILY 01/07/18 01/07/18 Previous Rx's Medication Instructions Recorded ondansetron [Zofran ODT] 4 mg PO QID PRN #7 tab 01/07/18 Allergies Allergy/AdvReac Type Severity Reaction Status Date / Time RAMIREZ Inhibitors Allergy Unknown Unverified 07/02/17 12:55 [RAMIREZ INHIBITORS] oxycodone [OXYCODONE] Allergy Unknown Unverified 07/02/17 12:55 MINOXODIL Allergy Unknown Uncoded 07/02/17 12:55 Review of Systems Review of Systems All systems reviewed & are unremarkable except as noted in HPI and below Constitutional Denies chills, Denies fever(s), Denies lethargy and Denies weakness Eyes Denies change in vision, Denies eye discharge, Denies irritation and Denies loss of vision ENT Ears, Nose, Mouth, and Throat: Denies change in voice, Denies neck pain and Denies sore throat Cardiovascular Denies chest pain, Denies irregular heart rhythm, Denies lightheadedness, Denies palpitations, Denies dyspnea, Denies dyspnea on exertion and Denies orthopnea Respiratory Denies cough, Denies dyspnea, Denies dyspnea on exertion and Denies wheezing Gastrointestinal Gastrointestinal: Denies abdominal pain, Denies change in bowel habits, Denies diarrhea, Reports nausea and Reports vomiting Genitourinary Denies hematuria, Denies flank pain, Denies urinary incontinence and Denies urinary urgency Musculoskeletal Denies neck pain Integumentary/Breasts Denies pruritus, Denies erythema, Denies rash and Denies wounds Neurologic Denies confusion, Denies loss of vision and Denies weakness Psychiatric Denies anxiety, Denies confusion, Denies depression, Denies homicidal ideation and Denies suicidal ideation Endocrine Denies palpitations Hematologic/Lymphatic Denies easy bruising Allergic/Immunologic Denies wheezing PFSH Medical History Ureteral stenosis (Acute) CVA (cerebral vascular accident) (Acute) Renal cancer (Acute) Renal failure (Acute) Metabolic acidosis (Acute) Nephrostomy tube displaced (Acute) Surgical History History of renal stent (Acute) Social History additional social history: Patient is not a smoker; she lives in an assisted living facility. Exam Initial Vital Signs Initial Vital Signs: Vital Signs Temperature 99.5 F 01/07/18 14:37 Pulse Rate 84 01/07/18 14:37 Respiratory Rate 14 01/07/18 14:37 Blood Pressure 165/100 H 01/07/18 14:37 Pulse Oximetry 98 01/07/18 14:37 Const General: cooperative and well developed Nutritional Appearance: well nourished Orientation: alert, awake, oriented x3 and not confused HENMT Head: normocephalic and atraumatic Ears: external ears normal Nose: external nose normal and No nasal discharge Face and sinus: face symmetric and No dry mucous membranes Mouth: oral mucosae normal and moist mucous membranes Eyes General: appearance normal, both eyes and all related structures Eyelids: eyelids normal Conjunctivae: conjunctivae normal Sclera: sclerae normal Pupils: PERRL EOM: EOM intact bilaterally Neck Neck: normal visual inspection, trachea midline, No lymphadenopathy, No midline deformity and No JVD Lymphatic: No lymphedema Chest Chest: normal inspection of the chest Resp Effort & Inspection: normal respiratory effort, able to speak in complete sentences, no respiratory distress and no use of accessory muscles Auscultation: clear to auscultation bilaterally, no rales, no rhonchi and no wheezes Cardio Rate: regular rate Rhythm: regular rhythm Heart Sounds: no click, no gallops, no murmurs and no rubs Pulses: normal peripheral pulses GI Inspection: non-distended Palpation: soft, no hepatosplenomegaly, No guarding, No pulsatile mass and No tender Back/Spine/Pelvis Back: No CVA tenderness Cervical Spine: cervical ROM normal and No pain with cervical ROM Thoracic/Lumbar Spine: thoracic and lumbar spine normal to inspection Skin General: no rashes or lesions noted, No jaundice and No petechiae Neuro General: alert, oriented x3, gait normal and no focal motor deficits Speech: speech normal Extrem General: full ROM, no clubbing, cyanosis or edema, no pedal edema and no calf tenderness Psych Appearance: well kempt Mental Status: mental status grossly normal Attitude: cooperative Thought Content: normal and suicidality Judgment: judgment good Course Course Narrative: Patient was treated symptomatically in the emergency department, and was worked up with labs, which were unremarkable. Patient stated she was feeling much better. I did not feel further intervention was indicated, as patient was stable. We have discussed home management, as well as the usual indications for return. Orders Ordered: ED Orders 01/07/18 14:46 XR chest 1V Stat 01/07/18 14:51 EKG-12 Lead Stat 01/07/18 15:03 Complete Blood Count AUTO DIFF Stat Comprehensive Metabolic Panel Stat Lactate (Lactic Acid) Stat Lipase Stat Partial Thromboplastin Time Stat Procalcitonin Stat Prothrombin Time INR Stat Troponin & CK Cardiac Panel Stat 01/07/18 15:39 Blood Culture Stat 01/07/18 16:00 Urine Culture Stat Urine Microscopic Stat Vital Signs - 8 hr 01/07/18 14:37 01/07/18 16:30 01/07/18 18:00 Temperature 99.5 F Pulse Rate 84 69 82 Respiratory Rate 14 28 H 18 Blood Pressure 165/100 H Blood Pressure [Left Arm] 159/88 H 163/68 H Pulse Oximetry 98 92 97 01/07/18 18:43 Temperature Pulse Rate 71 Respiratory Rate 20 Blood Pressure 159/88 H Blood Pressure [Left Arm] Pulse Oximetry 93 MDM - Nausea/Vomiting/Diarrhea Medical Records Attestation: I reviewed the patient's medical records. Lab Data Attestation: I reviewed the patient's lab results. Result diagrams: 01/07/18 15:03 01/07/18 15:03 Lab Results 01/07/18 01/07/18 01/07/18 Range/Units 15:03 15:03 15:03 WBC 9.4 (4.5-11.0) X10^3/uL RBC 3.39 L (4.0-5.2) X10^6/uL Hgb 10.1 L (12.0-16.0) g/dL Hct 30.6 L (36-46) % MCV 90.2 (80-100) fL MCH 29.8 (26-34) PG MCHC 33.0 (30-36) % RDW 14.4 (11.6-14.8) % Plt Count 214 (150-400) X10^3/uL Neut % (Auto) 87.9 H (50-75) % Lymph % (Auto) 6.0 L (25-40) % Ida % (Auto) 4.9 (3-14) % Eos % (Auto) 0.8 L (2-4) % Baso % (Auto) 0.4 (0-2) % Neut # (Auto) 8300 H (9142-0090) /uL PT 13.0 H (10.1-12.7) SECONDS INR 1.2 (0.9-1.3) APTT 27 (26.4-36.2) SECONDS Sodium (137-145) mmol/L Potassium (3.4-5.1) mmol/L Chloride (98-107) mmol/L Carbon Dioxide (22-32) mmol/L BUN (7-17) mg/dL Creatinine (0.52-1.04) mg/dL Estimated GFR (>60) mL/min BUN/Creatinine Ratio (6-22) Glucose (80-110) mg/dL Lactate (0.7-2.1) mmol/L Calcium (8.4-10.2) mg/dL Total Bilirubin (0.2-1.3) mg/dL AST (14-36) IU/L ALT (9-52) IU/L Alkaline Phosphatase (38-126) U/L Total Creatine Kinase (30-135) U/L CK-MB (CK-2) CK-MB (CK-2) Rel Index Troponin I (0.01-0.034) ng/mL Total Protein (6.3-8.2) g/dL Albumin (3.5-5.0) g/dL Globulin (1.7-4.1) g/dL Albumin/Globulin Ratio (1.0-2.8) Lipase (23-300) U/L Procalcitonin 0.09 (<0.5) ng/mL Urine RBC (0-5/HPF) Urine WBC (0-5/HPF) Ur Squamous Epith Cells Urine Bacteria (None) Ur Culture Indicated? Micro UA Comment 01/07/18 01/07/1818 Range/Units 15:03 15:03 15:03 WBC (4.5-11.0) X10^3/uL RBC (4.0-5.2) X10^6/uL Hgb (12.0-16.0) g/dL Hct (36-46) % MCV (80-100) fL MCH (26-34) PG MCHC (30-36) % RDW (11.6-14.8) % Plt Count (150-400) X10^3/uL Neut % (Auto) (50-75) % Lymph % (Auto) (25-40) % Ida % (Auto) (3-14) % Eos % (Auto) (2-4) % Baso % (Auto) (0-2) % Neut # (Auto) (6987-7703) /uL PT (10.1-12.7) SECONDS INR (0.9-1.3) APTT (26.4-36.2) SECONDS Sodium 145 (137-145) mmol/L Potassium 4.6 (3.4-5.1) mmol/L Chloride 108 H (98-107) mmol/L Carbon Dioxide 19 L (22-32) mmol/L BUN 36 H (7-17) mg/dL Creatinine 2.30 H (0.52-1.04) mg/dL Estimated GFR 20.6 L (>60) mL/min BUN/Creatinine Ratio 15.7 (6-22) Glucose 154 H (80-110) mg/dL Lactate 0.7 (0.7-2.1) mmol/L Calcium 8.5 (8.4-10.2) mg/dL Total Bilirubin 0.5 (0.2-1.3) mg/dL AST 27 (14-36) IU/L ALT 29 (9-52) IU/L Alkaline Phosphatase 101 (38-126) U/L Total Creatine Kinase 28 L (30-135) U/L CK-MB (CK-2) TNP CK-MB (CK-2) Rel Index TNP Troponin I 0.023 (0.01-0.034) ng/mL Total Protein 7.5 (6.3-8.2) g/dL Albumin 4.1 (3.5-5.0) g/dL Globulin 3.4 (1.7-4.1) g/dL Albumin/Globulin Ratio 1.2 (1.0-2.8) Lipase 108 (23-300) U/L Procalcitonin (<0.5) ng/mL Urine RBC (0-5/HPF) Urine WBC (0-5/HPF) Ur Squamous Epith Cells Urine Bacteria (None) Ur Culture Indicated? Micro UA Comment 01/07/18 Range/Units 16:00 WBC (4.5-11.0) X10^3/uL RBC (4.0-5.2) X10^6/uL Hgb (12.0-16.0) g/dL Hct (36-46) % MCV (80-100) fL MCH (26-34) PG MCHC (30-36) % RDW (11.6-14.8) % Plt Count (150-400) X10^3/uL Neut % (Auto) (50-75) % Lymph % (Auto) (25-40) % Ida % (Auto) (3-14) % Eos % (Auto) (2-4) % Baso % (Auto) (0-2) % Neut # (Auto) (4112-5230) /uL PT (10.1-12.7) SECONDS INR (0.9-1.3) APTT (26.4-36.2) SECONDS Sodium (137-145) mmol/L Potassium (3.4-5.1) mmol/L Chloride (98-107) mmol/L Carbon Dioxide (22-32) mmol/L BUN (7-17) mg/dL Creatinine (0.52-1.04) mg/dL Estimated GFR (>60) mL/min BUN/Creatinine Ratio (6-22) Glucose (80-110) mg/dL Lactate (0.7-2.1) mmol/L Calcium (8.4-10.2) mg/dL Total Bilirubin (0.2-1.3) mg/dL AST (14-36) IU/L ALT (9-52) IU/L Alkaline Phosphatase (38-126) U/L Total Creatine Kinase (30-135) U/L CK-MB (CK-2) CK-MB (CK-2) Rel Index Troponin I (0.01-0.034) ng/mL Total Protein (6.3-8.2) g/dL Albumin (3.5-5.0) g/dL Globulin (1.7-4.1) g/dL Albumin/Globulin Ratio (1.0-2.8) Lipase (23-300) U/L Procalcitonin (<0.5) ng/mL Urine RBC 1-5/hpf (0-5/HPF) Urine WBC 5-10/hpf H (0-5/HPF) Ur Squamous Epith Cells 0-1 /hpf Urine Bacteria Occasional (0-1) (None) Ur Culture Indicated? Specimen cultured Micro UA Comment Not Reportable Urine Dip Bedside Urine Glucose Negative Bedside Urine Bilirubin - Negative Bedside Urine Ketone - Negative Urine Specific [place] 1.015 Bedside Urine Occult Blood ++ Bedside Urine pH 6.0 Bedside Urine Protein ++ 100 Bedside Urine Urobilinogen - Negative Bedside Urine Nitrite - Negative Bedside Urine Leukocytes +++ 500 Esterase Discharge Plan Departure Patient Disposition: Home Clinical Impression: Vomiting Discharge Date/Time: 01/07/18 18:44 Interventions: ED Discharge Assessment Last Done: 01/07/18 18:43 Instructions: DI for Vomiting -- Adult Activity Restrictions/Additional Instructions: Your labs look good. There is no evidence of a serious infection or other serious condition going on. Please take the nausea medicine, as needed. Prescriptions: New ondansetron [Zofran ODT] 4 mg tablet,disintegrating 4 mg PO QID PRN (Reason: nausea and vomiting) Qty: 7 RF: 0 No Action latanoprost [Xalatan] 0.005 % drops 1 drp OPHTH HS Qty: 0 RF: 0 clonidine 0.2 mg/24 hr Patch Weekly 1 patch Topical MO RF: 0 pravastatin 40 mg Tablet 40 mg PO QPM RF: 0 ciprofloxacin HCl [Cipro] 500 mg Tablet 15 mg/kg PO DAILY RF: 0 aspirin 81 mg Tablet,Delayed Release (Dr/Ec) 81 mg PO DAILY RF: 0 famotidine 20 mg Tablet 20 mg PO QPM RF: 0 amlodipine 10 mg tablet 10 mg PO DAILY RF: 0 pantoprazole 40 mg tablet,delayed release (DR/EC) 40 mg PO DAILY RF: 0 ferrous sulfate 325 mg (65 mg iron) Tablet 325 mg PO DAILY RF: 0 vitamin B complex Tablet 1 tab PO DAILY RF: 0 Lactobacillus rhamnosus GG [Culturelle] 10 billion cell Capsule 2 cap PO DAILY RF: 0 insulin lispro 100 unit/mL Insulin Pen 1 dose subcut ACHS RF: 0 metoprolol tartrate 25 mg Tablet 25 mg PO BID RF: 0 calcium carbonate-vitamin D3 [Calcium 600 + D(3)] 600-125 mg-unit Tablet 1 tab PO DAILY RF: 0 baclofen 5 mg Tablet 5 mg PO BID RF: 0 acetaminophen 325 mg Tablet 325 mg PO Q8H PRN (Reason: pain) RF: 0 hydralazine 25 mg Tablet 25 mg PO Q8H RF: 0 magnesium hydroxide [Milk of Magnesia] 400 mg/5 mL Suspension 30 ml PO PRN PRN (Reason: Constipation) RF: 0 bisacodyl [Dulcolax (bisacodyl)] 10 mg Suppository 1 supp ME PRN PRN (Reason: Constipation) RF: 0 sodium phosphates [Fleet Enema] 19-7 gram/118 mL Enema 1 supp ME PRN PRN (Reason: Constipation) RF: 0 bisacodyl 5 mg Tablet 1 - 2 tab PO PRN PRN (Reason: Constipation) RF: 0 Referrals: Biju Roberto MD [Physician] -
[2018-01-07 17:19] LABS: Bacteria Urine Occasional (0-1); RBC Urine 1-5/HPF (0-5/HPF); Squamous Epithelial Cell Urine 0-1 /HPF; WBC Urine 5-10/HPF (0-5/HPF)
[2018-01-07 17:20] LABS: Culture Indicated Urine Specimen Cultured
--- NOTE | 2018-01-07 17:32 | PC.NURSE ---
pt refusing to go to [facility] care by wheelchair, pt states it causes her to have nausea. social professionals aware. BLS transport called per pt request.
[2018-01-07 18:00] VITALS: BP 163/68; PULSE 82; RESP 18; O2SAT 97
[2018-01-07 18:43] VITALS: BP 159/88; PULSE 71; RESP 20; O2SAT 93
== END 2018-01-07 18:44 | disposition home or self-care (01) ==
PROVIDERS: Emergency Provider Emergency Medicine
DX: R11.10 Vomiting, unspecified (principal)
CPT/HCPCS: 36415; 36591; 71045; 80053; 81003; 81015; 82550; 83605; 83690; 84145; 84484; 85025; 85610; 85730; 87040; 87086; 93005; 93010; 99283; 99285

== ENCOUNTER → 2018-03-27 16:42 | Outpatient (REF) | payer MEDICARE, BC, SELFPAY ==
[2018-03-27 17:13] LABS: Calcium 8.7 mg/dL (8.4-10.2); Carbon Dioxide 10 mmol/L (22-32); Chloride 109 mmol/L (98-107); Estimated Glomerular Filt Rate 5.2 mL/min (>60); Glucose 102 mg/dL (80-110); HEMOLYSIS < 15 (0-50)
[2018-03-27 17:29] LABS: BUN Creatinine Ratio 13.8 (6-22); Blood Urea Nitrogen 105 mg/dL (7-17); Sodium 137 mmol/L (137-145)
[2018-03-27 17:56] LABS: Potassium 6.5 mmol/L (3.4-5.1)
== END ==
LOC: LAB 16:42
PROVIDERS: Family Provider Internal Medicine; PCP Internal Medicine; Visit Provider Internal Medicine
DX: E86.0 Dehydration (principal)
CPT/HCPCS: 80048

== ENCOUNTER 2018-03-27 18:39 | Emergency (ER) | payer MEDICARE, BC, SELFPAY ==
[2018-03-27] VITALS (8 sets, daily range): BP systolic 124–143; BP diastolic 53–75; PULSE 76–80; RESP 16–26; TEMP 37.2–37.4; O2SAT 95–98; BMI 28.5
--- NOTE | 2018-03-27 18:46 | DI.RAD.S_ITS ---
PROCEDURE: XR CHEST 1V INDICATIONS: renal failure TECHNIQUE: One view of the chest was acquired. COMPARISON: [facility], CR, XR CHEST 1V, 01/07/2018, 14:56. FINDINGS: Surgical changes and devices: None. Lungs and pleura: No pleural effusions or pneumothorax. No focal consolidation. There is mild pulmonary vascular prominence suggestive of mild edema. Mediastinum: Mediastinal contours appear unchanged. Heart size is enlarged. Bones and chest wall: No suspicious bony lesions. Overlying soft tissues appear unremarkable. IMPRESSION: 1. Mild pulmonary vascular prominence suggestive of mild edema. Dictated by: Quinten Jensen M.D. on 03/27/2018 at 19:32 Approved by: Quinten Jensen M.D. on 03/27/2018 at 19:33
--- NOTE | 2018-03-27 18:54 | ED.RECABL ---
HPI - Recheck/Abnormal Lab/Rx General Chief Complaint: Recheck/Abnormal Lab/Rx Stated Complaint: KIDNEY PAIN Time Seen by Provider: 03/27/18 18:44 Source: patient, family and EMS Mode of arrival: EMS Limitations: no limitations History of Present Illness HPI narrative: 77-year-old female nonsmoker presents to the emergency department with family and EMS for evaluation generalized fatigue. They had a call at home after outpatient labs were ordered by primary care provider critically elevated potassium and creatinine. Patient was sent to the emergency department by them for evaluation. Patient states on the whole she feels generally weak and out of it but has very little in terms of specific complaint. She does complain of some pain on her tailbone. She is not dizzy but complains of feeling weak. She lives at home with multiple family members. She has had no fever or chills. She has had some nausea vomiting and loose stools. She has had kidney issues for many years which started with a pelvic cancer when she was 26 years old that resulted in a relocation of her ureter and subsequent placement ureteral stents. She has had frequent episodes of pyelonephritis. She denies the care of Urology at [facility]. complaint: abnormal lab Returns today for: called because of abnormal lab/test Associated symptoms: malaise and nausea Related Data Home Medications Medication Instructions Recorded Confirmed latanoprost [Xalatan] 1 mario DALTON HS #0 03/22/11 01/07/18 Lactobacillus rhamnosus GG 2 cap PO DAILY 01/07/18 01/07/18 [Culturelle] acetaminophen 325 mg PO Q8H PRN 01/07/18 01/07/18 amlodipine 10 mg PO DAILY 01/07/18 01/07/18 aspirin 81 mg PO DAILY 01/07/18 01/07/18 baclofen 5 mg PO BID 01/07/18 01/07/18 bisacodyl 1 - 2 tab PO PRN PRN 01/07/18 01/07/18 bisacodyl [Dulcolax (bisacodyl)] 1 supp OK PRN PRN 01/07/18 01/07/18 calcium carbonate-vitamin D3 1 tab PO DAILY 01/07/18 01/07/18 [Calcium 600 + D(3)] ciprofloxacin HCl [Cipro] 15 mg/kg PO DAILY 01/07/18 01/07/18 clonidine 1 patch TOPICAL MO 01/07/18 01/07/18 famotidine 20 mg PO QPM 01/07/18 01/07/18 ferrous sulfate 325 mg PO DAILY 01/07/18 01/07/18 hydralazine 25 mg PO Q8H 01/07/18 01/07/18 insulin lispro 1 dose SUBCUT ACHS 01/07/18 01/07/18 magnesium hydroxide [Milk of 30 ml PO PRN PRN 01/07/18 01/07/18 Magnesia] metoprolol tartrate 25 mg PO BID 01/07/18 01/07/18 pantoprazole 40 mg PO DAILY 01/07/18 01/07/18 pravastatin 40 mg PO QPM 01/07/18 01/07/18 sodium phosphates [Fleet Enema] 1 supp OK PRN PRN 01/07/18 01/07/18 vitamin B complex 1 tab PO DAILY 01/07/18 01/07/18 Previous Rx's Medication Instructions Recorded ondansetron [Zofran ODT] 4 mg PO QID PRN #7 tab 01/07/18 Allergies Allergy/AdvReac Type Severity Reaction Status Date / Time RAMIREZ Inhibitors Allergy Unknown Unverified 03/27/18 23:19 [RAMIREZ INHIBITORS] oxycodone [OXYCODONE] Allergy Unknown Unverified 03/27/18 23:19 MINOXODIL Allergy Unknown Uncoded 03/27/18 23:19 Review of Systems Review of Systems All systems reviewed & are unremarkable except as noted in HPI and below Constitutional Denies chills, Reports fever(s), Denies lethargy and Reports weakness Eyes Denies change in vision, Denies eye discharge, Denies irritation and Denies loss of vision ENT Ears, Nose, Mouth, and Throat: Denies change in voice, Denies neck pain and Denies sore throat Cardiovascular Denies chest pain, Denies irregular heart rhythm, Denies lightheadedness, Denies palpitations, Denies dyspnea, Denies dyspnea on exertion and Denies orthopnea Respiratory Denies cough, Denies dyspnea, Denies dyspnea on exertion and Denies wheezing Gastrointestinal Gastrointestinal: Denies abdominal pain, Denies change in bowel habits, Denies diarrhea, Reports nausea and Reports vomiting Genitourinary Denies hematuria, Denies flank pain, Denies urinary incontinence and Denies urinary urgency Musculoskeletal Denies neck pain Integumentary/Breasts Denies pruritus, Denies erythema, Denies rash and Denies wounds Neurologic Denies confusion, Denies loss of vision and Reports weakness Psychiatric Denies anxiety, Denies confusion, Denies depression, Denies homicidal ideation and Denies suicidal ideation Endocrine Denies palpitations Hematologic/Lymphatic Denies easy bruising Allergic/Immunologic Denies wheezing [facility] Medical History Ureteral stenosis (Acute) CVA (cerebral vascular accident) (Acute) Renal cancer (Acute) Renal failure (Acute) Metabolic acidosis (Acute) Nephrostomy tube displaced (Acute) Surgical History History of renal stent (Acute) Social History Smoking Status: Never smoker additional social history: Patient is not a smoker; she lives in an assisted living facility. Exam Narrative Exam Narrative: GENERAL: Chronically ill 77-year-old female in mild distress, appears unwell HEAD: Atraumatic. Normocephalic. No temporal or scalp tenderness. EYES: Pupils equal round and reactive. Extraocular motions intact. No scleral icterus. No injection or drainage. ENT: Dry mucous membranes Nose without bleeding, purulent drainage or septal hematoma. Throat without erythema, tonsillar hypertrophy or exudate. Uvula midline. Airway patent. NECK: Trachea midline. No JVD or lymphadenopathy. Supple, nontender, no meningeal signs. CARDIOVASCULAR: Regular rate and rhythm without murmurs, gallops, or rubs. RESPIRATORY: Faint crackles in bilateral bases GASTROINTESTINAL: Abdomen soft, non-tender, nondistended. No hepato-splenomegaly, or palpable masses. No guarding. EXTREMITIES: No clubbing, cyanosis, or edema. No joint tenderness, effusion, or edema noted. BACK: Nontender without deformity or crepitance. No flank tenderness. NEURO: AOx3. SKIN: Poor turgor No rash or erythema. Initial Vital Signs Initial Vital Signs: Vital Signs Temperature 99.3 F 03/27/18 18:49 Pulse Rate 80 03/27/18 18:49 Respiratory Rate 16 03/27/18 18:49 Blood Pressure 141/75 H 03/27/18 18:49 Pulse Oximetry 98 03/27/18 18:49 Course Orders Ordered: ED Orders 03/27/18 18:46 XR chest 1V Stat EKG-12 Lead Stat 03/27/18 19:10 Complete Blood Count AUTO DIFF Stat Comprehensive Metabolic Panel Stat Lactate (Lactic Acid) Stat Prothrombin Time INR Stat 03/27/18 19:24 US renal complete Stat Discontinued Medications Acetaminophen (Tylenol) 650 mg PO NOW ONE Stop: 03/28/18 00:01 Last Admin: 03/28/18 00:00 Dose: 650 mg Sodium Chloride (Normal Saline 0.9%) 1,000 mls @ 500 mls/hr IV BOLUS ONE Stop: 03/27/18 21:23 Last Infusion: 03/27/18 20:30 Dose: 500 mls/hr Admin: 03/27/18 19:30 Dose: 500 mls/hr Consultations Consultation #1: given hx of urology at [facility] call placed to them first, no available beds. call placed to [facility] at family request. Urology PA happy to play a role in likely stent replacement, but request admission to hospitalist Call to Hospitalist, Dr. Gasca whom is happy to accept Vital Signs - 8 hr 03/27/18 18:49 03/27/18 18:59 03/27/18 20:00 Temperature 99.3 F 99.3 F 99.3 F Pulse Rate 80 80 78 Respiratory Rate 16 16 26 H Blood Pressure 141/75 H 141/75 H 141/75 H Blood Pressure [Left Arm] Pulse Oximetry 98 98 95 03/27/18 20:48 03/27/18 21:55 03/27/18 22:25 Temperature Pulse Rate 77 76 78 Respiratory Rate 18 22 26 H Blood Pressure Blood Pressure [Left Arm] 124/53 L 126/63 143/70 H Pulse Oximetry 98 97 95 03/27/18 23:30 03/28/18 01:30 Temperature Pulse Rate 77 75 Respiratory Rate 23 23 Blood Pressure Blood Pressure [Left Arm] 139/73 122/63 Pulse Oximetry 97 97 MDM - Recheck/Abnormal Lab/Rx Lab Data Attestation: I reviewed the patient's lab results. Result diagrams: 03/27/18 19:10 03/27/18 19:10 Lab Results 01/04/19 01/04/19 01/04/19 Range/Units 19:10 19:10 19:10 WBC 7.0 (4.5-11.0) X10^3/uL RBC 3.23 L (4.0-5.2) X10^6/uL Hgb 9.5 L (12.0-16.0) g/dL Hct 29.3 L (36-46) % MCV 90.9 (80-100) fL MCH 29.4 (26-34) PG MCHC 32.3 (30-36) % RDW 14.1 (11.6-14.8) % Plt Count 413 H (150-400) X10^3/uL Neut % (Auto) 67.0 (50-75) % Lymph % (Auto) 20.7 L (25-40) % [place] % (Auto) 10.7 (3-14) % Eos % (Auto) 1.1 L (2-4) % Baso % (Auto) 0.5 (0-2) % Neut # (Auto) 4700 (1714-8579) /uL PT 13.8 H (10.1-12.7) SECONDS INR 1.2 (0.9-1.3) Sodium 136 L (137-145) mmol/L Potassium 6.0 H (3.4-5.1) mmol/L Chloride 108 H (98-107) mmol/L Carbon Dioxide 10 L (22-32) mmol/L BUN 108 H* (7-17) mg/dL Creatinine 7.70 H* (0.52-1.04) mg/dL Estimated GFR 5.1 L (>60) mL/min BUN/Creatinine Ratio 14.0 (6-22) Glucose 122 H (80-110) mg/dL Lactate (0.7-2.1) mmol/L Calcium 8.7 (8.4-10.2) mg/dL Total Bilirubin 0.5 (0.2-1.3) mg/dL AST 24 (14-36) IU/L ALT 28 (9-52) IU/L Alkaline Phosphatase 96 (38-126) U/L Total Protein 7.6 (6.3-8.2) g/dL Albumin 3.7 (3.5-5.0) g/dL Globulin 3.9 (1.7-4.1) g/dL Albumin/Globulin Ratio 0.9 L (1.0-2.8) 03/27/18 Range/Units 19:10 WBC (4.5-11.0) X10^3/uL RBC (4.0-5.2) X10^6/uL Hgb (12.0-16.0) g/dL Hct (36-46) % MCV (80-100) fL MCH (26-34) PG MCHC (30-36) % RDW (11.6-14.8) % Plt Count (150-400) X10^3/uL Neut % (Auto) (50-75) % Lymph % (Auto) (25-40) % [place] % (Auto) (3-14) % Eos % (Auto) (2-4) % Baso % (Auto) (0-2) % Neut # (Auto) (8600-3469) /uL PT (10.1-12.7) SECONDS INR (0.9-1.3) Sodium (137-145) mmol/L Potassium (3.4-5.1) mmol/L Chloride (98-107) mmol/L Carbon Dioxide (22-32) mmol/L BUN (7-17) mg/dL Creatinine (0.52-1.04) mg/dL Estimated GFR (>60) mL/min BUN/Creatinine Ratio (6-22) Glucose (80-110) mg/dL Lactate 0.6 L (0.7-2.1) mmol/L Calcium (8.4-10.2) mg/dL Total Bilirubin (0.2-1.3) mg/dL AST (14-36) IU/L ALT (9-52) IU/L Alkaline Phosphatase (38-126) U/L Total Protein (6.3-8.2) g/dL Albumin (3.5-5.0) g/dL Globulin (1.7-4.1) g/dL Albumin/Globulin Ratio (1.0-2.8) Discharge Plan Departure Patient Disposition: [facility] Clinical Impression: Occlusion of ureteral stent, Acute renal failure Prescriptions: No Action latanoprost [Xalatan] 0.005 % drops 1 drp OPHTH HS Qty: 0 RF: 0 ondansetron [Zofran ODT] 4 mg tablet,disintegrating 4 mg PO QID PRN (Reason: nausea and vomiting) Qty: 7 RF: 0 clonidine 0.2 mg/24 hr Patch Weekly 1 patch Topical MO RF: 0 pravastatin 40 mg Tablet 40 mg PO QPM RF: 0 ciprofloxacin HCl [Cipro] 500 mg Tablet 15 mg/kg PO DAILY RF: 0 aspirin 81 mg Tablet,Delayed Release (Dr/Ec) 81 mg PO DAILY RF: 0 famotidine 20 mg Tablet 20 mg PO QPM RF: 0 amlodipine 10 mg tablet 10 mg PO DAILY RF: 0 pantoprazole 40 mg tablet,delayed release (DR/EC) 40 mg PO DAILY RF: 0 ferrous sulfate 325 mg (65 mg iron) Tablet 325 mg PO DAILY RF: 0 vitamin B complex Tablet 1 tab PO DAILY RF: 0 Lactobacillus rhamnosus GG [Culturelle] 10 billion cell Capsule 2 cap PO DAILY RF: 0 insulin lispro 100 unit/mL Insulin Pen 1 dose subcut ACHS RF: 0 metoprolol tartrate 25 mg Tablet 25 mg PO BID RF: 0 calcium carbonate-vitamin D3 [Calcium 600 + D(3)] 600-125 mg-unit Tablet 1 tab PO DAILY RF: 0 baclofen 5 mg Tablet 5 mg PO BID RF: 0 acetaminophen 325 mg Tablet 325 mg PO Q8H PRN (Reason: pain) RF: 0 hydralazine 25 mg Tablet 25 mg PO Q8H RF: 0 magnesium hydroxide [Milk of Magnesia] 400 mg/5 mL Suspension 30 ml PO PRN PRN (Reason: Constipation) RF: 0 bisacodyl [Dulcolax (bisacodyl)] 10 mg Suppository 1 supp OK PRN PRN (Reason: Constipation) RF: 0 sodium phosphates [Fleet Enema] 19-7 gram/118 mL Enema 1 supp OK PRN PRN (Reason: Constipation) RF: 0 bisacodyl 5 mg Tablet 1 - 2 tab PO PRN PRN (Reason: Constipation) RF: 0
--- NOTE | 2018-03-27 19:24 | DI.US.S_ITS ---
PROCEDURE: US RENAL COMPLETE INDICATIONS: RENAL FAILURE; HISTORY BILATERAL STENTS TECHNIQUE: Real-time scanning was performed of the kidneys and bladder, with image documentation. COMPARISON: [facility], US, RENAL COMPLETE, 07/28/2015, 20:02. [facility], CT, CT KUB, 01/02/2018, 19:46. FINDINGS: Kidneys: Right kidney measures 12.3 cm long; left kidney measures 13.4 cm long. Right renal cortical thickness is 0.8 cm; left renal cortical thickness is 1.3 cm. There is severe bilateral hydronephrosis with associated renal cortical thinning. There are filling defects within the renal collecting systems suggestive of debris. Ureteral stents are demonstrated bilaterally with the proximal coils not well visualized secondary to filling defects in the renal pelves. The proximal ureters measure approximate 4 cm on the right and 5 cm on the left. Bladder: The urinary bladder is partially distended and lobulated in contour. Salazar catheter in place and not well-visualized. There are filling defects in the bladder compatible with nonspecific debris. Miscellaneous: No free pelvic fluid. IMPRESSION: 1. Severe bilateral hydronephrosis redemonstrated with associated renal cortical thinning. 2. Bilateral ureteral stents demonstrated with the end coils not well-visualized. 3. Filling defects within the renal collecting systems and bladder consistent with nonspecific debris. Dictated by: Quinten Jensen M.D. on 03/27/2018 at 21:18 Approved by: Quinten Jensen M.D. on 03/27/2018 at 21:22
[2018-03-27] MEDS: SODIUM CHLORIDE 0.9% 1,000 ML 500 ML IV (19:30)
[2018-03-27 19:41] LABS: Add Manual Diff / Slide Review NO; Basophils Percent Auto 0.5 % (0-2); Eosinophils Percent Auto 1.1 % (2-4); Hematocrit 29.3 % (36-46); Hemoglobin 9.5 g/dL (12.0-16.0); Lymphocytes Percent Auto 20.7 % (25-40); Mean Corpuscular HGB Conc 32.3 % (30-36); Mean Corpuscular Hemoglobin 29.4 PG (26-34); Mean Corpuscular Volume 90.9 fL (80-100); Monocytes Percent Auto 10.7 % (3-14); Neutrophils Absolute Auto 4700 /uL (1500-7000); Platelet Count 413 X10^3/uL (150-400); Red Blood Cell Count 3.23 X10^6/uL (4.0-5.2); Red Cell Distribution Width 14.1 % (11.6-14.8)
[2018-03-27 19:48] LABS: INR 1.2 (0.9-1.3); Prothrombin Time 13.8 SECONDS (10.1-12.7)
--- NOTE | 2018-03-27 19:50 | ED_ITS ---
HPI - Recheck/Abnormal Lab/Rx General Chief Complaint: Recheck/Abnormal Lab/Rx Stated Complaint: KIDNEY PAIN Time Seen by Provider: 03/27/18 18:44 Source: patient, family and EMS Mode of arrival: EMS Limitations: no limitations History of Present Illness HPI narrative: 77-year-old female nonsmoker presents to the emergency department with family and EMS for evaluation generalized fatigue. They had a call at home after outpatient labs were ordered by primary care provider critically elevated potassium and creatinine. Patient was sent to the emergency department by them for evaluation. Patient states on the whole she feels generally weak and out of it but has very little in terms of specific complaint. She does complain of some pain on her tailbone. She is not dizzy but complains of feeling weak. She lives at home with multiple family members. She has had no fever or chills. She has had some nausea vomiting and loose stools. She has had kidney issues for many years which started with a pelvic cancer when she was 26 years old that resulted in a relocation of her ureter and subsequent placement ureteral stents. She has had frequent episodes of pyelonephritis. She denies the care of Urology at [facility]. complaint: abnormal lab Returns today for: called because of abnormal lab/test Associated symptoms: malaise and nausea Related Data Home Medications Medication Instructions Recorded Confirmed latanoprost [Xalatan] 1 mario DALTON HS #0 03/22/11 01/07/18 Lactobacillus rhamnosus GG 2 cap PO DAILY 01/07/18 01/07/18 [Culturelle] acetaminophen 325 mg PO Q8H PRN 01/07/18 01/07/18 amlodipine 10 mg PO DAILY 01/07/18 01/07/18 aspirin 81 mg PO DAILY 01/07/18 01/07/18 baclofen 5 mg PO BID 01/07/18 01/07/18 bisacodyl 1 - 2 tab PO PRN PRN 01/07/18 01/07/18 bisacodyl [Dulcolax (bisacodyl)] 1 supp NE PRN PRN 01/07/18 01/07/18 calcium carbonate-vitamin D3 1 tab PO DAILY 01/07/18 01/07/18 [Calcium 600 + D(3)] ciprofloxacin HCl [Cipro] 15 mg/kg PO DAILY 01/07/18 01/07/18 clonidine 1 patch TOPICAL MO 01/07/18 01/07/18 famotidine 20 mg PO QPM 01/07/18 01/07/18 ferrous sulfate 325 mg PO DAILY 01/07/18 01/07/18 hydralazine 25 mg PO Q8H 01/07/18 01/07/18 insulin lispro 1 dose SUBCUT ACHS 01/07/18 01/07/18 magnesium hydroxide [Milk of 30 ml PO PRN PRN 01/07/18 01/07/18 Magnesia] metoprolol tartrate 25 mg PO BID 01/07/18 01/07/18 pantoprazole 40 mg PO DAILY 01/07/18 01/07/18 pravastatin 40 mg PO QPM 01/07/18 01/07/18 sodium phosphates [Fleet Enema] 1 supp NE PRN PRN 01/07/18 01/07/18 vitamin B complex 1 tab PO DAILY 01/07/18 01/07/18 Previous Rx's Medication Instructions Recorded ondansetron [Zofran ODT] 4 mg PO QID PRN #7 tab 01/07/18 Allergies Allergy/AdvReac Type Severity Reaction Status Date / Time RAMIREZ Inhibitors Allergy Unknown Unverified 03/27/18 23:19 [RAMIREZ INHIBITORS] oxycodone [OXYCODONE] Allergy Unknown Unverified 03/27/18 23:19 MINOXODIL Allergy Unknown Uncoded 03/27/18 23:19 Review of Systems Review of Systems All systems reviewed & are unremarkable except as noted in HPI and below Constitutional Denies chills, Reports fever(s), Denies lethargy and Reports weakness Eyes Denies change in vision, Denies eye discharge, Denies irritation and Denies loss of vision ENT Ears, Nose, Mouth, and Throat: Denies change in voice, Denies neck pain and Denies sore throat Cardiovascular Denies chest pain, Denies irregular heart rhythm, Denies lightheadedness, Denies palpitations, Denies dyspnea, Denies dyspnea on exertion and Denies orthopnea Respiratory Denies cough, Denies dyspnea, Denies dyspnea on exertion and Denies wheezing Gastrointestinal Gastrointestinal: Denies abdominal pain, Denies change in bowel habits, Denies diarrhea, Reports nausea and Reports vomiting Genitourinary Denies hematuria, Denies flank pain, Denies urinary incontinence and Denies urinary urgency Musculoskeletal Denies neck pain Integumentary/Breasts Denies pruritus, Denies erythema, Denies rash and Denies wounds Neurologic Denies confusion, Denies loss of vision and Reports weakness Psychiatric Denies anxiety, Denies confusion, Denies depression, Denies homicidal ideation and Denies suicidal ideation Endocrine Denies palpitations Hematologic/Lymphatic Denies easy bruising Allergic/Immunologic Denies wheezing [facility] Medical History Ureteral stenosis (Acute) CVA (cerebral vascular accident) (Acute) Renal cancer (Acute) Renal failure (Acute) Metabolic acidosis (Acute) Nephrostomy tube displaced (Acute) Surgical History History of renal stent (Acute) Social History Smoking Status: Never smoker additional social history: Patient is not a smoker; she lives in an assisted living facility. Exam Narrative Exam Narrative: GENERAL: Chronically ill 77-year-old female in mild distress, appears unwell HEAD: Atraumatic. Normocephalic. No temporal or scalp tenderness. EYES: Pupils equal round and reactive. Extraocular motions intact. No scleral icterus. No injection or drainage. ENT: Dry mucous membranes Nose without bleeding, purulent drainage or septal hematoma. Throat without erythema, tonsillar hypertrophy or exudate. Uvula midline. Airway patent. NECK: Trachea midline. No JVD or lymphadenopathy. Supple, nontender, no meningeal signs. CARDIOVASCULAR: Regular rate and rhythm without murmurs, gallops, or rubs. RESPIRATORY: Faint crackles in bilateral bases GASTROINTESTINAL: Abdomen soft, non-tender, nondistended. No hepato-splenomegaly , or palpable masses. No guarding. EXTREMITIES: No clubbing, cyanosis, or edema. No joint tenderness, effusion, or edema noted. BACK: Nontender without deformity or crepitance. No flank tenderness. NEURO: AOx3. SKIN: Poor turgor No rash or erythema. Initial Vital Signs Initial Vital Signs: Vital Signs Temperature 99.3 F 03/27/18 18:49 Pulse Rate 80 03/27/18 18:49 Respiratory Rate 16 03/27/18 18:49 Blood Pressure 141/75 H 03/27/18 18:49 Pulse Oximetry 98 03/27/18 18:49 Course Orders Ordered: ED Orders 03/27/18 18:46 XR chest 1V Stat EKG-12 Lead Stat 03/27/18 19:10 Complete Blood Count AUTO DIFF Stat Comprehensive Metabolic Panel Stat Lactate (Lactic Acid) Stat Prothrombin Time INR Stat 03/27/18 19:24 US renal complete Stat Discontinued Medications Acetaminophen (Tylenol) 650 mg PO NOW ONE Stop: 03/28/18 00:01 Last Admin: 03/28/18 00:00 Dose: 650 mg Sodium Chloride (Normal Saline 0.9%) 1,000 mls @ 500 mls/hr IV BOLUS ONE Stop: 03/27/18 21:23 Last Infusion: 03/27/18 20:30 Dose: 500 mls/hr Admin: 03/27/18 19:30 Dose: 500 mls/hr Consultations Consultation #1: given hx of urology at [facility] call placed to them first, no available beds. call placed to [facility] at family request. Urology PA happy to play a role in likely stent replacement, but request admission to hospitalist Call to Hospitalist, Dr. Gasca whom is happy to accept Vital Signs - 8 hr 03/27/18 18:49 03/27/18 18:59 03/27/18 20:00 Temperature 99.3 F 99.3 F 99.3 F Pulse Rate 80 80 78 Respiratory Rate 16 16 26 H Blood Pressure 141/75 H 141/75 H 141/75 H Blood Pressure [Left Arm] Pulse Oximetry 98 98 95 03/27/18 20:48 03/27/18 21:55 03/27/18 22:25 Temperature Pulse Rate 77 76 78 Respiratory Rate 18 22 26 H Blood Pressure Blood Pressure [Left Arm] 124/53 L 126/63 143/70 H Pulse Oximetry 98 97 95 03/27/18 23:30 03/28/18 01:30 Temperature Pulse Rate 77 75 Respiratory Rate 23 23 Blood Pressure Blood Pressure [Left Arm] 139/73 122/63 Pulse Oximetry 97 97 MDM - Recheck/Abnormal Lab/Rx Lab Data Attestation: I reviewed the patient's lab results. Result diagrams: 03/27/18 19:10 03/27/18 19:10 Lab Results 01/04/19 01/04/19 01/04/19 Range/Units 19:10 19:10 19:10 WBC 7.0 (4.5-11.0) X10^3/uL RBC 3.23 L (4.0-5.2) X10^6/uL Hgb 9.5 L (12.0-16.0) g/dL Hct 29.3 L (36-46) % MCV 90.9 (80-100) fL MCH 29.4 (26-34) PG MCHC 32.3 (30-36) % RDW 14.1 (11.6-14.8) % Plt Count 413 H (150-400) X10^3/uL Neut % (Auto) 67.0 (50-75) % Lymph % (Auto) 20.7 L (25-40) % [place] % (Auto) 10.7 (3-14) % Eos % (Auto) 1.1 L (2-4) % Baso % (Auto) 0.5 (0-2) % Neut # (Auto) 4700 (0823-9590) /uL PT 13.8 H (10.1-12.7) SECONDS INR 1.2 (0.9-1.3) Sodium 136 L (137-145) mmol/L Potassium 6.0 H (3.4-5.1) mmol/L Chloride 108 H (98-107) mmol/L Carbon Dioxide 10 L (22-32) mmol/L BUN 108 H* (7-17) mg/dL Creatinine 7.70 H* (0.52-1.04) mg/dL Estimated GFR 5.1 L (>60) mL/min BUN/Creatinine Ratio 14.0 (6-22) Glucose 122 H (80-110) mg/dL Lactate (0.7-2.1) mmol/L Calcium 8.7 (8.4-10.2) mg/dL Total Bilirubin 0.5 (0.2-1.3) mg/dL AST 24 (14-36) IU/L ALT 28 (9-52) IU/L Alkaline Phosphatase 96 (38-126) U/L Total Protein 7.6 (6.3-8.2) g/dL Albumin 3.7 (3.5-5.0) g/dL Globulin 3.9 (1.7-4.1) g/dL Albumin/Globulin Ratio 0.9 L (1.0-2.8) 03/27/18 Range/Units 19:10 WBC (4.5-11.0) X10^3/uL RBC (4.0-5.2) X10^6/uL Hgb (12.0-16.0) g/dL Hct (36-46) % MCV (80-100) fL MCH (26-34) PG MCHC (30-36) % RDW (11.6-14.8) % Plt Count (150-400) X10^3/uL Neut % (Auto) (50-75) % Lymph % (Auto) (25-40) % [place] % (Auto) (3-14) % Eos % (Auto) (2-4) % Baso % (Auto) (0-2) % Neut # (Auto) (5162-3121) /uL PT (10.1-12.7) SECONDS INR (0.9-1.3) Sodium (137-145) mmol/L Potassium (3.4-5.1) mmol/L Chloride (98-107) mmol/L Carbon Dioxide (22-32) mmol/L BUN (7-17) mg/dL Creatinine (0.52-1.04) mg/dL Estimated GFR (>60) mL/min BUN/Creatinine Ratio (6-22) Glucose (80-110) mg/dL Lactate 0.6 L (0.7-2.1) mmol/L Calcium (8.4-10.2) mg/dL Total Bilirubin (0.2-1.3) mg/dL AST (14-36) IU/L ALT (9-52) IU/L Alkaline Phosphatase (38-126) U/L Total Protein (6.3-8.2) g/dL Albumin (3.5-5.0) g/dL Globulin (1.7-4.1) g/dL Albumin/Globulin Ratio (1.0-2.8) Discharge Plan Departure Patient Disposition: [facility] Clinical Impression: Occlusion of ureteral stent, Acute renal failure Prescriptions: No Action latanoprost [Xalatan] 0.005 % drops 1 drp OPHTH HS Qty: 0 RF: 0 ondansetron [Zofran ODT] 4 mg tablet,disintegrating 4 mg PO QID PRN (Reason: nausea and vomiting) Qty: 7 RF: 0 clonidine 0.2 mg/24 hr Patch Weekly 1 patch Topical MO RF: 0 pravastatin 40 mg Tablet 40 mg PO QPM RF: 0 ciprofloxacin HCl [Cipro] 500 mg Tablet 15 mg/kg PO DAILY RF: 0 aspirin 81 mg Tablet,Delayed Release (Dr/Ec) 81 mg PO DAILY RF: 0 famotidine 20 mg Tablet 20 mg PO QPM RF: 0 amlodipine 10 mg tablet 10 mg PO DAILY RF: 0 pantoprazole 40 mg tablet,delayed release (DR/EC) 40 mg PO DAILY RF: 0 ferrous sulfate 325 mg (65 mg iron) Tablet 325 mg PO DAILY RF: 0 vitamin B complex Tablet 1 tab PO DAILY RF: 0 Lactobacillus rhamnosus GG [Culturelle] 10 billion cell Capsule 2 cap PO DAILY RF: 0 insulin lispro 100 unit/mL Insulin Pen 1 dose subcut ACHS RF: 0 metoprolol tartrate 25 mg Tablet 25 mg PO BID RF: 0 calcium carbonate-vitamin D3 [Calcium 600 + D(3)] 600-125 mg-unit Tablet 1 tab PO DAILY RF: 0 baclofen 5 mg Tablet 5 mg PO BID RF: 0 acetaminophen 325 mg Tablet 325 mg PO Q8H PRN (Reason: pain) RF: 0 hydralazine 25 mg Tablet 25 mg PO Q8H RF: 0 magnesium hydroxide [Milk of Magnesia] 400 mg/5 mL Suspension 30 ml PO PRN PRN (Reason: Constipation) RF: 0 bisacodyl [Dulcolax (bisacodyl)] 10 mg Suppository 1 supp NE PRN PRN (Reason: Constipation) RF: 0 sodium phosphates [Fleet Enema] 19-7 gram/118 mL Enema 1 supp NE PRN PRN (Reason: Constipation) RF: 0 bisacodyl 5 mg Tablet 1 - 2 tab PO PRN PRN (Reason: Constipation) RF: 0
[2018-03-27 19:52] LABS: Lactate (Lactic Acid) 0.6 mmol/L (0.7-2.1)
[2018-03-27 19:53] LABS: Alanine Aminotransferase 28 IU/L (9-52); Albumin 3.7 g/dL (3.5-5.0); Albumin Globulin Ratio 0.9 (1.0-2.8); Alkaline Phosphatase 96 U/L (38-126); Aspartate Aminotransferase 24 IU/L (14-36); Bilirubin Total 0.5 mg/dL (0.2-1.3); Calcium 8.7 mg/dL (8.4-10.2); Carbon Dioxide 10 mmol/L (22-32); Chloride 108 mmol/L (98-107); Estimated Glomerular Filt Rate 5.1 mL/min (>60); Globulin 3.9 g/dL (1.7-4.1); Glucose 122 mg/dL (80-110); HEMOLYSIS < 15 (0-50); Sodium 136 mmol/L (137-145); Total Protein 7.6 g/dL (6.3-8.2)
[2018-03-27 19:55] LABS: Blood Urea Nitrogen 108 mg/dL (7-17)
--- NOTE | 2018-03-27 19:55 | PC.NURSE ---
Family reports known pre-existing pressure ulcer to sacrum, pt reports pain to area. Sacrum appears red and has area of open skin. Pt repositioned for comfort and Dr laureano.
--- NOTE | 2018-03-27 22:55 | PC.NURSE ---
Dr Joshi called pt and told to come to ER for elevated potassium and creatinine. 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 Reports feeling weak in general and pain to her tailbone which family reports is related to an exisiting pressure ulcer. Pt denies CP or SOB.
[2018-03-28] MEDS: ACETAMINOPHEN 325 MG TABLET 650 MG PO
[2018-03-28 01:30] VITALS: BP 122/63; PULSE 75; RESP 23; O2SAT 97
[2018-03-28 02:45] VITALS: BP 119/64; PULSE 73; RESP 26; TEMP 37.2; O2SAT 97
== END 2018-03-28 02:45 | disposition short-term general hospital (02) ==
PROVIDERS: Emergency Provider Emergency Medicine; Family Provider Internal Medicine; PCP Internal Medicine
DX: T83.192A Other mechanical complication of indwelling ureteral stent, initial encounter (principal); N19 Unspecified kidney failure
CPT/HCPCS: 36591; 51701; 71045; 76770; 80048; 80053; 83605; 85025; 85610; 93005; 96360; 99284; 99285